=== PATIENT | male | born 1950 | race Two or more races ===

== ENCOUNTER 2024-09-02 18:58 | Inpatient (IN) | payer MEDICARE, OTHER ==
[~2024-09-02] VITALS: Ht 167.6 cm; Wt 72.0 kg
[~2024-09-02 18:58] MED LIST: IBU600T PO
[2024-09-02] MEDS: SODIUM CHLORIDE 0.9% 1,000 ML IV ONE ×2 (19:15→22:46)
[2024-09-02 19:34] LABS: Basophils # (auto) 0 10 ^3/uL (0-0.2); Basophils % (auto) 0.6 % (0.0-2.0); Eosinophils # (auto) 0.1 10 ^3/uL (0-0.8); Eosinophils % (auto) 2.3 % (0.0-7.0); Hemoglobin 14.3 g/dL (13.5-17.5); Lymphocytes # (auto) 1.5 10 ^3/uL (0.4-5.4); Lymphocytes % (auto) 34.2 % (10.0-50.0); Mean Corpuscular Hemoglobin 28.5 pg (28.0-32.0); Mean Corpuscular Hgb Conc. 33.4 g/dL (32.0-36.0); Mean Corpuscular Volume 85.5 fL (80.0-100.0); Monocytes # (auto) 0.4 10 ^3/uL (0-1.3); Monocytes % (auto) 8.2 % (0.0-12.0); Neutrophils # (auto) 2.3 10 ^3/uL (1.6-8.6); Neutrophils % (auto) 54.7 % (37.0-80.0); Nucleated Red Blood Cells % 0.1 %; Platelet Count (auto) 212 10^3/uL (140-450); Red Blood Cells 5.03 10^6/uL (4.5-5.90); Red Cell Distribution Width 14.5 % (11.8-14.3); White Blood Cell 4.3 10^3/uL (4.4-10.8)
[2024-09-02 19:43] LABS: Chloride 105 mmol/L (98-107); Potassium 4.3 mmol/L (3.5-5.1); Sodium 140 mmol/L (136-145)
[2024-09-02 19:44] LABS: Anion Gap 11 (5-15); Carbon Dioxide 24 mmol/L (20-31)
[2024-09-02 19:45] LABS: Calcium 9.9 mg/dL (8.7-10.4)
[2024-09-02 19:49] VITALS: PULSE 86; RESP 16; O2SAT 97
[2024-09-02 19:50] LABS: BUN/Creatinine Ratio 11.6 (10.0-20.0); Blood Urea Nitrogen 13 mg/dL (9-23)
[2024-09-02 19:54] LABS: Blood Alcohol < 3.0 mg/dL (<10); Glucose 186 mg/dL (74-106)
[2024-09-02 19:57] LABS: Lactic Acid w/Reflex 2.5 mmol/L (0.4-2.0)
--- NOTE | 2024-09-02 20:06 | ED.PDOC ---
HPI Comments 74 y/o M, with PMHx of DM presents to the ED for CC of low blood pressure and left arm pain. Per patient's son, patient had a syncopal episode at home at 1800 today (09/02/24) while getting up from a sitting position. Patient fell and struck his left shoulder and arm and arrives with the pain throughout. Patient's son reports, this prompted him to check patient's blood pressure resulting in a hypotensive reading. Patient complains, of current pain to his left arm following trauma. Patient denies head injury, loss of consciousness, nausea, headache, or vomiting. No other symptoms or modifying factors present at this time. Patient's blood pressure was 91/54 at arrival. Chief Complaint: Low Blood Pressure Time Seen by MD: 19:00 Primary Care Provider: UNKNOWN Reviewed Notes: Nurses Notes, Medications, Allergies Allergies: Coded Allergies: NO KNOWN ALLERGIES (Unverified , 03/22/24) Home Meds Active Scripts Ibuprofen Micronized (MOTRIN TABLET) 600 Mg Tb, 600 MG PO TID PRN for 5 Days, #15 TAB *Black box warning-NSAIDS can increase risk of NJ & hypertension, GI irritation, ulceration, bleed, perferation. Do not use post cardiac surgery. Use short duration/lowest effective dose. Prov:BIMAL SOTELO MD 03/22/24 Information Source: Patient, Relative (Child) Mode of Arrival: Ambulatory Severity: Moderate Timing: Minutes Duration: Since onset Prehospital treatment: None Onset: At Rest Cardiac Risk Factors: Diabetes PE Risk Factors: None History of: None Modifying Factors: Nothing Associated Signs and Symptoms: None Past Medical History PAST MEDICAL HISTORY: DM, HTN Surgical History: Denies all surgeries Family History Family History: Unknown Social History Smoker: Non-Smoker Alcohol: Denies ETOH Use Drugs: Denies Drug Use Lives In: Home Constitutional: denies: chills, diaphoresis, fatigue, fever, malaise, sweats, weakness, others EENTM: denies: blurred vision, double vision, ear bleeding, ear discharge, ear drainage, ear pain, ear ringing, eye pain, eye redness, hearing loss, mouth pain, mouth swelling, nasal discharge, nose bleeding, nose congestion, nose pain, photophobia, tearing, throat pain, throat swelling, voice changes, others Respiratory: denies: cough, hemoptysis, orthopnea, SOB at rest, shortness of breath, SOB with excertion, stridor, wheezing, others Cardiovascular: denies: chest pain, dizzy spells, diaphoresis, Dyspnea on exertion, edema, irregular heart beat, left arm pain, lightheadedness, palpitations, PND, syncope, others Gastrointestinal: denies: abdomen distended, abdominal pain, blood streaked bowels, constipated, diarrhea, dysphagia, difficulty swallowing, hematemesis, melena, nausea, poor appetite, poor fluid intake, rectal bleeding, rectal pain, vomiting, others Genitourinary: denies: burning, dysuria, flank pain, frequency, hematuria, incontinence, penile discharge, penile sore, pain, testicle pain, testicle swelling, urgency, others Neurological: reports: fainting; denies: dizziness, headache, left sided numbness, left sided weakness, numbness, paresthesia, pre-existing deficit, right sided numbness, right sided weakness, seizure, speech problems, tingling, tremors, weakness, others Musculoskeletal: reports: others (Left shoulder and left arm pain); denies: back pain, gout, joint pain, joint swelling, muscle pain, muscle stiffness, neck pain Integumetry: denies: bruises, change in color, change in hair/nails, dryness, laceration, lesions, lumps, rash, wounds, others Allergic/Immunocompromised: denies: Difficulty Healing, Frequent Infections, Hives, Itching, others Hematologic/Lymphatic: denies: anemia, blood clots, easy bleeding, easy bruising, swollen glands, others Endocrine: denies: excessive hunger, excessive sweating, excessive thirst, excessive urination, flushing, intolerance to cold, intolerance to heat, unexpla ined weight gain, unexplained weight loss, others Psychiatric: denies: anxiety, bipolar disorder, depression, hopeless, panic disorder, schizophrenia, sleepless, suicidal, others All Other Systems: Reviewed and Negative Physical Exam General Appearance: Moderate Distress (Due to left shoulder and left arm pain concerns), Normal HEENT: Head (Cranial exam was unremarkable. No signs of trauma. No skull depressions or deformities.), Normal ENT Inspection, Pharynx Normal, TMs Normal Neck: Full Range of Motion, Non-Tender, Normal, Normal Inspection Respiratory: Chest Non-Tender, Lungs Clear, No Accessory Muscle Use, No R espiratory Distress, Normal Breath Sounds Cardiovascular: No Edema, No JVD, No Murmur, No Gallop, Normal Peripheral Pulses, Regular Rate/Rhythm Breast Exam: Deferred Gastrointestinal: No Organomegaly, Non Tender, No Pulsatile Mass, Normal Bowel Sounds, Soft Genitalia: Deferred Pelvic: Deferred Rectal: Deferred Extremities: Other (Patient's left arm was diffusely tender to palpation throughout the shoulder girdle extending throughout the humeral region towards the elbow. Significant reduced range of motion. Distal neurovascularly intact.) Neurologic: Alert, No Sensory Deficits Cerebellar Function: NOT DONE Reflexes: NOT DONE Skin: Dry, Normal Color, Warm Lymphatic: No Adenopathy Was a procedure done? Was a procedure done?: No CP Differential Dx Differential Diagnosis: A-fib, A-Flutter, Angina, AV Block 1st Degree, Electrolyte Disorder, NJ, Other (Sepsis, electrolyte abnormality, vasovagal, shoulder fracture, humeral fracture, arm contusion) Differential Diagnosis: Other (hypotension) X-Ray, Labs, Meds, VS Vital Signs Date Time Temp Pulse Resp B/P (MAP) Pulse Ox O2 Delivery O2 Flow Rate FiO2 09/02/24 20:57 97 Room Air* 0 21 09/02/24 20:00 88 19 131/65 (87) 98 09/02/24 19:49 86 16 97 Room Air* 0 21 09/02/24 19:42 97.7 87 19 136/70 (92) 98 97.7 09/02/24 18:58 98.1 87 16 91/54 (66) 97 98.1 Lab Test 09/02/24 21:22 09/02/24 20:22 09/02/24 19:45 09/02/24 19:19 Range/Units Lactic Acid Level 2.8 *H 2.5 *H 0.4-2.0 mmol/L Troponin I High Sensitivity < 3 L < 3 L </=54 ng/L POC Glucose 206 H 70-106 mg/dl White Blood Count 4.3 L 4.4-10.8 10^3/uL Red Blood Count 5.03 4.5-5.90 10^6/uL Hemoglobin 14.3 13.5-17.5 g/dL Hematocrit 43.0 41.0-53.0 % Mean Corpuscular Volume 85.5 80.0-100.0 fL Mean Corpuscular Hemoglobin 28.5 28.0-32.0 pg Mean Corpuscular Hemoglobin Concent 33.4 32.0-36.0 g/dL Red Cell Distribution Width 14.5 H 11.8-14.3 % Platelet Count 212 140-450 10^3/uL Mean Platelet Volume 8.4 6.9-10.8 fL Neutrophils (%) (Auto) 54.7 37.0-80.0 % Lymphocytes (%) (Auto) 34.2 10.0-50.0 % Monocytes (%) (Auto) 8.2 0.0-12.0 % Eosinophils (%) (Auto) 2.3 0.0-7.0 % Basophils (%) (Auto) 0.6 0.0-2.0 % Neutrophils # (Auto) 2.3 1.6-8.6 10 ^3/uL Lymphocytes # (Auto) 1.5 0.4-5.4 10 ^3/uL Monocytes # (Auto) 0.4 0-1.3 10 ^3/uL Eosinophils # (Auto) 0.1 0-0.8 10 ^3/uL Basophils # (Auto) 0 0-0.2 10 ^3/uL Nucleated Red Blood Cells 0.1 % Sodium Level 140 136-145 mmol/L Potassium Level 4.3 3.5-5.1 mmol/L Chloride Level 105 98-107 mmol/L Carbon Dioxide Level 24 20-31 mmol/L Anion Gap 11 5-15 Blood Urea Nitrogen 13 9-23 mg/dL Creatinine 1.12 0.700-1.30 mg/dL Glomerular Filtration Rate Calc 68 >90 mL/min BUN/Creatinine Ratio 11.6 10.0-20.0 Serum Glucose 186 H 74-106 mg/dL Calcium Level 9.9 8.7-10.4 mg/dL B-Type Natriuretic Peptide 34.98 0-100 pg/mL Lipase 56 H 12-53 U/L Plasma/Serum Blood Alcohol < 3.0 <10 mg/dL Current Medications Medications (Trade) Dose Ordered Sig/Landon Route Start Time Stop Time Status Last Admin Sodium Chloride 1,000 ml @ 250 mls/hr Q4H ONCE IV 09/02/24 19:15 09/02/24 23:14 09/02/24 19:15 Sodium Chloride 1,000 ml @ 250 mls/hr Q4H ONCE IV 09/02/24 22:30 09/03/24 02:29 09/02/24 22:[address] [address] Ph: [phone] DIAGNOSTIC IMAGING Diagnostic Imaging Report : [id number] Signed PATIENT: YOCASTA TOLEDOCT: [id number] UNIT: [id number] : 1950 LOC: ER ROOM / BED: / AGE / SEX: 74 / M ADM STATUS: REG ER SERVICE 08 ORDERING PHYSICIAN: LOIS NEWTON PAC PROCEDURE(s): LSHD2 - L SHOULDER 2+ VIEW XRAY REASON: Trauma/fall ORDER NUMBER(s): [id number], ACCESSION NUMBER(s): [id number] CLINICAL INDICATION: Trauma/fall TECHNIQUE: 3 radiographic views of the left shoulder were obtained. Comparison: None FINDINGS/IMPRESSION: Fracture of the neck of the proximal left humerus. There is also fracture through the greater tuberosity. ATED BY: DEANNA DUARTE Jr., DO DICTATED DATE/TIME: 09/02/242025 SIGNED BY: DEANNA DUARTE Jr., SIGNED DATE/TIME: 09/02/242025 CC: [place] [id number] Ph: [phone] DIAGNOSTIC IMAGING Diagnostic Imaging Report : [id number] Signed PATIENT: YOCASTA TOLEDOCT: [id number] UNIT: [id number] : 1950 LOC: ER ROOM / BED: / AGE / SEX: 74 / M ADM STATUS: REG ER SERVICE 08 ORDERING PHYSICIAN: LOIS NEWTON PAC PROCEDURE(s): LHUM - L HUMERUS XRAY REASON: Trauma/fall ORDER NUMBER(s): [id number], ACCESSION NUMBER(s): [id number] CLINICAL INDICATION: Trauma/fall TECHNIQUE: 2 radiographic views of the left humerus were obtained. Comparison: None FINDINGS/IMPRESSION: Displaced fracture through the anatomic neck of the proximal humerus. Also fracture displaced through the greater tuberosity proximal humerus. ATED BY: DEANNA DUARTE Jr., DO DICTATED DATE/TIME: 09/02/242027 SIGNED BY: DEANNA DUARTE Jr., DO SIGNED DATE/TIME: 09/02/242027 CC: [place] [id number] Ph: [phone] DIAGNOSTIC IMAGING Diagnostic Imaging Report : [id number] Signed PATIENT: CORWIN TOLEDOOACCT: [id number] UNIT: [id number] : 1950 LOC: ER ROOM / BED: / AGE / SEX: 74 / M ADM STATUS: REG ER SERVICE 08 ORDERING PHYSICIAN: LOIS NEWTON PAC PROCEDURE(s): LELB3 - L ELBOW 3 VIEW XRAY REASON: Trauma/fall ORDER NUMBER(s): [id number], ACCESSION NUMBER(s): [id number] CLINICAL INDICATION: Trauma/fall TECHNIQUE: 3 radiographic views of the left elbow were obtained. Comparison: None FINDINGS/IMPRESSION: There is abnormal configuration of the radial head with no obvious fracture lines noted. Recommend correlation with point tenderness to exclude fracture. Limited evaluation for joint effusion given inadequate lateral positioning. Questionable mild posterior elbow soft tissue edema. ATED BY: JESSICA IBANEZ DO DICTATED DATE/TIME: 09/02/242030 SIGNED BY: JESSICA IBANEZ DO SIGNED DATE/TIME: 09/02/242030 CC: X-Ray, Labs, Meds, VS Comment All studies performed the ED were evaluated by me personally. Laboratories studies revealed an elevated lactic acid, a hyperglycemic state and elevated lipase with a unremarkable cardiac markers. EKG revealed a sinus rhythm with a rate of 97. Right axis deviation and minimal ST elevation on lateral leads. MO interval 135 and QT interval of 346. Imaging studies of the left arm revealed a left humeral neck fracture. Patient will be admitted for a cardiac evaluation to address his syncopal concerns, possible neurologic evaluation as well as possible orthopedic evaluation. Time of 1ST Reevaluation: 22:37 Reevaluation 1ST: Improved Consultation: PCP, Cardiology Patient Education/Counseling: Diagnosis, Treatment Family Education/Counseling: Diagnosis, Treatment, No Family Present Sepsis Sepsis Reasesment Focused Exam Orders: Laboratory Tests 09/02/24 19:19: Lactic Acid Level 2.5 09/02/24 21:22: Lactic Acid Level 2.8 Departure 1 Departure Time of Disposition: 22:37 Impression: Primary Impression: Humeral surgical neck fracture Additional Impressions: Elevated lactic acid level Hyperglycemia Elevated lipase Disposition: ADMITTED INPATIENT Condition: Fair Discharged With: Self Critical Care Note Critical Care Time?: No Stability Stability form required: No Heart Score Heart Score: Heart Score Response (Comments) Value History Slightly Suspicious 0 EKG Repolarization Disturb 1 Age >65 2 Risk Factors 1 or 2 risk factors 1 Troponin Normal limit 0 Total 4 I personally scribed for LAMAR,LOIS B PAC ([email or web address]) on 09/02/24 at 20:06. Electronically submitted by Sylvia Simons ([email or web address]). I personally scribed for LAMAR,LOIS B PAC ([email or web address]) on 09/02/24 at 20:14. Electronically submitted by Sylvia Simons ([email or web address]). I personally scribed for LAMAR,LOIS B PAC ([email or web address]) on 09/02/24 at 20:15. Electronically submitted by Sylvia Simons ([email or web address]). I personally scribed for LAMAR,LOIS B PAC ([email or web address]) on 09/02/24 at 21:04. Electronically submitted by Sylvia Simons ([email or web address]). I personally scribed for LAMAR,LOIS B PAC ([email or web address]) on 09/02/24 at 21:05. El ectronically submitted by Sylvia Simons ([email or web address]). I personally scribed for LAMAR,LOIS B PAC ([email or web address]) on 09/02/24 at 21:08. Elect ronically submitted by Sylvia Simons ([email or web address]). LAMAR,LOIS B PAC Sep 02, 2024 20:06
[2024-09-02 20:16] LABS: Lipase 56 U/L (12-53)
--- NOTE | 2024-09-02 20:29 | DVH ---
CLINICAL INDICATION: Trauma/fall TECHNIQUE: 3 radiographic views of the left shoulder were obtained. Comparison: None FINDINGS/IMPRESSION: Fracture of the neck of the proximal left humerus. There is also fracture through the greater tuberos ity.
--- NOTE | 2024-09-02 20:31 | DVH ---
CLINICAL INDICATION: Trauma/fall TECHNIQUE: 2 radiographic views of the left humerus were obtained. Comparison: None FINDINGS/IMPRESSION: Displaced fracture through the anatomic neck of the proximal humerus. Also fracture displaced through the greater tuberosity proximal humerus.
--- NOTE | 2024-09-02 20:34 | DVH ---
CLINICAL INDICATION: Trauma/fall TECHNIQUE: 3 radiographic views of the left elbow were obtained. Comparison: None FINDINGS/IMPRESSION: There is abnormal configuration of the radial head with no obvious fracture lines noted. Recommend c orrelation with point tenderness to exclude fracture. Limited evaluation for joint effusion given tammy dequate lateral positioning. Questionable mild posterior elbow soft tissue edema.
[2024-09-02 21:20] VITALS: O2SAT 97
[2024-09-02] MEDS: HYDROmorphone HCL 2 MG/ML VL/or syr IV ONE (22:45)
[2024-09-03] MEDS ORDERED: ACETAMINOPHEN 325 MG TAB PO PRN (02:15)
[2024-09-03] MEDS ORDERED: HYDROcodone-ACET 5/325MG TAB PO PRN (02:15)
[2024-09-03] MEDS ORDERED: ONDANSETRON HCL 4 MG/2 ML VIAL IV PRN (02:15)
[2024-09-03] MEDS ORDERED: NITROGLYCERIN 0.4 MG SL TAB SL PRN (02:15)
[2024-09-03] MEDS ORDERED: DOCUSATE SOD 100 MG CAP PO PRN (02:15)
[2024-09-03] MEDS ORDERED: MORPHINE SULFATE INJ 2 MG/ml SYRG IV PRN ×2 (02:15)
[2024-09-03] MEDS ORDERED: DEXTROSE (50%) 50ML SYRG IV PRN (02:15)
--- NOTE | 2024-09-03 02:17 | DVHHP2 ---
History of Present Illness Reason for Visit: Humeral surgical neck fracture History of Present Illness The patient is a 74-year-old male with past medical history of diabetes mellitus and hypertension who presented to [facility] ED with complaint of left arm pain. As reported by family, patient had a syncopal episode at home while getting up from a sitting position, fell hitting his left shoulder and arm with sustained injury. Patient started experiencing left shoulder pain,, hypotensive, getting worse that prompted this visit. Patient was seen and evaluated in the ED, laboratory data shows WBC 4.3, platelets 212, sodium 140, potassium 4.3, BUN 13, creatinine 1.12, glucose 186, calcium 9.9, lipase 56, troponin < 3, lactic acid 2.8, BNP 34.98, blood pressure 91/54 trending up to 131/65, heart rate 88, temperature 97.7 F, O2 saturation 97% on room air. Left shoulder x-ray revealing displaced fracture through the anatomic neck of the proximal humerus; also fracture displaced through the greater tuberosity proximal humerus. Patient was given Dilaudid 1 mg IV x1, please see medication orders section in the computer. On my assessment, family at bedside, patient denied chest pain, no headache, no dizziness, no diaphoresis, no shortness of breath, no nausea, no vomiting, no fever, no chills. Patient was admitted for further evaluation and medical management. Past Medical History DM, HTN Past Surgical History Denies all surgeries Family History Reviewed, noncontributory to the management of this case. Past Social History The patient lives at home, denies smoking, alcohol or illicit drugs abuse. Review of Systems Constitutional: Yes: Weakness; No: Fever, Chills, Sweats, Malaise, Other Eyes: No: Pain, Vision change, Conjunctivae inflammation, Eyelid inflammation, Other, Redness ENT: No: Ear pain, Ear discharge, Nose pain, Nose discharge, Nose congestion, Mouth pain, Mouth swelling, Throat pain, Throat swelling, Other Respiratory: No: Cough, Dry, Shortness of breath, SOB with excertion, Wheezing, Hemoptysis, Pleuritic Pain, Sputum, Wheezing, Other Cardiovascular: No: Chest Pain, Palpitations, Orthopnea, Paroxysmal Noc. Dyspnea, Edema, Lt Headedness, Other Gastrointestinal: No: Nausea, Vomiting, Abdominal Pain, Diarrhea, Constipation, Melena, Hematochezia, Other Genitourinary: No Dysuria, No Frequency, No Incontinence, No Hematuria, No Retention, No Other Musculoskeletal: shoulder pain (Left), arm pain (Left); No: other, neck pain, back pain, hand pain, leg pain, foot pain Skin: No: Rash, Lesions, Jaundice, Bruising, Other Neurological: No: Weakness, Numbness, Incoordination, Change in speech, Confusion, Seizures, Other Allergies: Coded Allergies: NO KNOWN ALLERGIES (Unverified , 03/22/24) Exam Vital Signs Vital Signs Date Time Temp Pulse Resp B/P (MAP) Pulse Ox O2 Delivery O2 Flow Rate FiO2 09/02/24 23:04 97 09/02/24 20:57 97 Room Air* 0 21 09/02/24 20:00 19 131/65 (87) 09/02/24 19:42 97.7 97.7 General Appearance: Alert, Oriented X3, Cooperative, No acute distress HEENT: Atraumatic, PERRLA, EOMI, Mucous membr. moist/pink Respiratory: Clear to auscultation, Normal air movement Cardiovascular: Regular rate, Normal S1, Normal S2, No murmurs Abdominal: Normal bowel sounds, Soft, No tenderness, No hepatospenomegaly, No masses Extremities: No clubbing, No cyanosis, No edema, Normal pulses, Other (Left shoulder tenderness) Skin: No rashes, No breakdown, No significant lesion Neuro: Normal speech, Normal tone, Sensation intact, Cranial nerves 3-12 NL, Reflexes 2+, Other (Generalized weakness) Psych/Mental Status: Mental status NL, Mood NL Labs/Xrays Labs Test 09/02/24 21:22 09/02/24 20:22 09/02/24 19:45 09/02/24 19:19 Range/Units Lactic Acid Level 2.8 *H 0.4-2.0 mmol/L Troponin I High Sensitivity < 3 L </=54 ng/L POC Glucose 206 H 70-106 mg/dl White Blood Count 4.3 L 4.4-10.8 10^3/uL Red Blood Count 5.03 4.5-5.90 10^6/uL Hemoglobin 14.3 13.5-17.5 g/dL Hematocrit 43.0 41.0-53.0 % Mean Corpuscular Volume 85.5 80.0-100.0 fL Mean Corpuscular Hemoglobin 28.5 28.0-32.0 pg Mean Corpuscular Hemoglobin Concent 33.4 32.0-36.0 g/dL Red Cell Distribution Width 14.5 H 11.8-14.3 % Platelet Count 212 140-450 10^3/uL Mean Platelet Volume 8.4 6.9-10.8 fL Neutrophils (%) (Auto) 54.7 37.0-80.0 % Lymphocytes (%) (Auto) 34.2 10.0-50.0 % Monocytes (%) (Auto) 8.2 0.0-12.0 % Eosinophils (%) (Auto) 2.3 0.0-7.0 % Basophils (%) (Auto) 0.6 0.0-2.0 % Neutrophils # (Auto) 2.3 1.6-8.6 10 ^3/uL Lymphocytes # (Auto) 1.5 0.4-5.4 10 ^3/uL Monocytes # (Auto) 0.4 0-1.3 10 ^3/uL Eosinophils # (Auto) 0.1 0-0.8 10 ^3/uL Basophils # (Auto) 0 0-0.2 10 ^3/uL Nucleated Red Blood Cells 0.1 % Sodium Level 140 136-145 mmol/L Potassium Level 4.3 3.5-5.1 mmol/L Chloride Level 105 98-107 mmol/L Carbon Dioxide Level 24 20-31 mmol/L Anion Gap 11 5-15 Blood Urea Nitrogen 13 9-23 mg/dL Creatinine 1.12 0.700-1.30 mg/dL Glomerular Filtration Rate Calc 68 >90 mL/min BUN/Creatinine Ratio 11.6 10.0-20.0 Serum Glucose 186 H 74-106 mg/dL Calcium Level 9.9 8.7-10.4 mg/dL B-Type Natriuretic Peptide 34.98 0-100 pg/mL Lipase 56 H 12-53 U/L Plasma/Serum Blood Alcohol < 3.0 <10 mg/dL PATIENT: DARWIN TOLEDOTERRIOACCT: [id number] UNIT: [id number] : 1950 LOC: ER ROOM / BED: / AGE / SEX: 74 / M ADM STATUS: REG ER SERVICE 08 ORDERING PHYSICIAN: LOIS NEWTON PAC PROCEDURE(s): LELB3 - L ELBOW 3 VIEW XRAY REASON: Trauma/fall ORDER NUMBER(s): [id number], ACCESSION NUMBER(s): [id number] CLINICAL INDICATION: Trauma/fall TECHNIQUE: 3 radiographic views of the left elbow were obtained. Comparison: None FINDINGS/IMPRESSION: There is abnormal configuration of the radial head with no obvious fracture lines noted. Recommend correlation with point tenderness to exclude fracture. Limited evaluation for joint effusion given inadequate lateral positioning. Questionable mild posterior elbow soft tissue edema. ORDERING PHYSICIAN: LOIS NEWTON PAC PROCEDURE(s): LHUM - L HUMERUS XRAY REASON: Trauma/fall ORDER NUMBER(s): [id number], ACCESSION NUMBER(s): [id number] CLINICAL INDICATION: Trauma/fall TECHNIQUE: 2 radiographic views of the left humerus were obtained. Comparison: None FINDINGS/IMPRESSION: Displaced fracture through the anatomic neck of the proximal humerus. Also fracture displaced through the greater tuberosity proximal humerus. ORDERING PHYSICIAN: LOIS NEWTON PAC PROCEDURE(s): LSHD2 - L SHOULDER 2+ VIEW XRAY REASON: Trauma/fall ORDER NUMBER(s): [id number], ACCESSION NUMBER(s): [id number] CLINICAL INDICATION: Trauma/fall TECHNIQUE: 3 radiographic views of the left shoulder were obtained. Comparison: None FINDINGS/IMPRESSION: Fracture of the neck of the proximal left humerus. There is also fracture through the greater tuberosity. Assessment/Plan Assessment/Plan Humeral surgical neck fracture Elevated lipase Elevated lactic acid level Diabetes mellitus with hyperglycemia Plan 1. Admit to telemetry unit 2. Breathing treatment 3. Pain control management 4. IV antibiotic management 5. Management of fluids and electrolytes 6. Consultation for orthopedic 7. Diagnostic test left shoulder x-ray 8. DVT prophylaxis-on Lovenox 9. Repeat labs CBC, CMP in a.m. 10. Home medication reviewed and reconciled 11. Continue with current medical management 12. Treatment plan discussed with patient and RN. Patient verbalized understanding. Plan discussed with: Patient, Other (RN) My Orders Orders - DAVID SANTOYO DNP Procedure Category Date Status Time Complete Blood Count LAB 09/03/24 Verified 04:00 Comprehensive LAB 09/03/24 Verified Metabolic Panel 04:00 Consistent DIET 09/03/24 Verified Carb(Ccho)Diabetes Breakfast Hydralazine Injection PHA 09/03/24 Verified (Apresoline Inject 02:15 Glucose Blood PHA 09/03/24 Verified (Accu-Chek Comfort 07:00 Bedtime Insulin Scale PHA 09/03/24 Verified 22:00 Moderate Insulin Ss PHA 09/03/24 Verified 07:00 Dextrose 50% Syringe PHA 09/03/24 Verified 02:15 Admit ADMIT 09/03/24 Verified 02:11 Allergies [facility] 09/03/24 Verified 02:11 Code Status CODE 09/03/24 Verified 02:11 Sodium Chloride Lock PHA 09/03/24 Verified (Saline Lock Ns) 06:00 Oxygen Per Hour RT 09/03/24 Verified 02:11 Hydrocodone-Acet PHA 09/03/24 Verified 5/325mg Tab ([place] 02:15 Ondansetron Hcl PHA 09/03/24 Verified (Zofran) 02:15 Docusate Sodium PHA 09/03/24 Verified Capsule (Colace 02:15 Enoxaparin Sodium PHA 09/03/24 Verified (Lovenox) 10:00 Fall Risk Precautions [facility] 09/03/[address] 02:11 Complete Blood Count LAB 09/04/24 Verified 04:00 Comprehensive LAB 09/04/24 Verified Metabolic Panel 04:00 Cardiac DIET 09/03/24 Verified Diet-2gna,Lofat,Lochol Breakfast Condition: Serious [facility] 09/03/24 Verified 02:11 Acetaminophen Tablet [facility] 09/03/24 Verified (Tylenol Tablet) 02:15 Maintain Bed Rest [facility] 09/03/24 Verified 02:11 Morphine Sulfate PHA 09/03/24 Verified Injection 02:15 Sequential [facility] 09/03/24 Verified Compression Device Nitroglycerin [facility] 09/03/24 Verified Sublingual (Ntrostat 02:15 Morphine Sulfate PHA 09/03/24 Verified Injection 02:15 Notify Md Of Changes [facility] 09/03/24 Verified From Base 02:11 [employer] For [facility] 09/03/24 Verified 24 Hours 02:11 Emergency Dysrhythmia [facility] 09/03/24 Verified Protocol 02:11 Rhythm Strips Once [facility] 09/03/24 Verified Every Shift 02:11 Oxygen By Nasal RT 09/03/24 Verified Cannula 02:11 Problem List: (1) Humeral surgical neck fracture (2) Elevated lipase (3) Elevated lactic acid level (4) Diabetes mellitus with hyperglycemia Date of Service: Sep 03, 2024 Billing Provider: DAVID SANTOYO DNP Common Visit Codes: [id number] INP/OBS CARE (HIGH) DAVID SANTOYO DNP Sep 03, 2024 02:17
[2024-09-03 03:26] LABS: Urine Bacteria None Seen /hpf (None Seen)
[2024-09-03 03:30] LABS: Urine Blood Negative /uL (Negative); Urine Clarity Clear (Clear); Urine Color Light-Yellow (Yellow); Urine Protein, UAD Negative (Negative); Urine Specific Gravity 1.014 (1.001-1.035); Urine Squamous Epithelial Cell FEW /hpf (<5); Urine Urobilinogen Normal (Negative); Urine WBC < 1 /HPF (0-3)
[2024-09-03 03:43] LABS: Amphetamine Screen, Urine Neg (NEGATIVE); Barbiturate Scree,Urine Neg (NEGATIVE); Benzodiazephine Screen, Urine Neg (NEGATIVE)
[2024-09-03 03:44] LABS: Cannabinoid Screen, Urine Neg (NEGATIVE); Cocaine Screen, Urine Neg (NEGATIVE); Opiate Scree,Urine Neg (NEGATIVE); Phencyclidine Screen, Urine Neg (NEGATIVE)
[2024-09-03 04:59] VITALS: BP 151/78; PULSE 88; RESP 16; TEMP 99.2; O2SAT 96
[2024-09-03 05:00] VITALS: BP 151/78; PULSE 88; RESP 16; TEMP 99.2; O2SAT 96
[2024-09-03 06:19] LABS: Basophils # (auto) 0 10 ^3/uL (0-0.2); Basophils % (auto) 0.2 % (0.0-2.0); Eosinophils # (auto) 0 10 ^3/uL (0-0.8); Eosinophils % (auto) 0.5 % (0.0-7.0); Hematocrit 36.9 % (41.0-53.0); Hemoglobin 12.4 g/dL (13.5-17.5); Lymphocytes # (auto) 1.5 10 ^3/uL (0.4-5.4); Lymphocytes % (auto) 24.9 % (10.0-50.0); Mean Corpuscular Hemoglobin 28.4 pg (28.0-32.0); Mean Corpuscular Hgb Conc. 33.6 g/dL (32.0-36.0); Mean Corpuscular Volume 84.5 fL (80.0-100.0); Monocytes # (auto) 0.5 10 ^3/uL (0-1.3); Monocytes % (auto) 8.8 % (0.0-12.0); Neutrophils % (auto) 65.6 % (37.0-80.0); Platelet Count (auto) 178 10^3/uL (140-450); Red Blood Cells 4.36 10^6/uL (4.5-5.90); Red Cell Distribution Width 14.4 % (11.8-14.3)
[2024-09-03] MEDS: hydrALAZINE HCL 20 MG/ML VL IV PRN (06:24)
[2024-09-03] MEDS: SODIUM CHLOR 0.9% PF (SALINE LOCK) 10ML VIAL/SYR IV SCH (06:24)
[2024-09-03 06:36] LABS: Alanine Aminotransferase 21 U/L (7-40); Albumin 3.8 g/dL (3.2-4.8); Alkaline Phosphatase 107 U/L (46-116); Anion Gap 10 (5-15); Aspartate Aminotransferase 13 U/L (<34); BUN/Creatinine Ratio 15.1 (10.0-20.0); Blood Urea Nitrogen 13 mg/dL (9-23); Calcium 9.1 mg/dL (8.7-10.4); Carbon Dioxide 24 mmol/L (20-31); Chloride 106 mmol/L (98-107); Potassium 3.9 mmol/L (3.5-5.1); Sodium 140 mmol/L (136-145); Total Protein 6.3 g/dL (5.7-8.2)
[2024-09-03 06:37] LABS: Bilirubin, Total 0.6 mg/dL (0.2-1.0); Glucose 193 mg/dL (74-106)
[2024-09-03] MEDS: ACCU-CHEK COMFORT CURVE STRIP VI SCH (06:49)
[2024-09-03] MEDS: InsuLIN REG 1unit/0.01ml Soln (100units/ml) SC SCH ×2 (06:57→21:25)
[2024-09-03] MEDS: cefTRIAXone 1GM/50ML D5W 50 ML IV SCH (09:07)
[2024-09-03] MEDS: ENOXAPARIN SOD 40 MG/0.4 ML SYRINGE SC SCH (10:41)
--- NOTE | 2024-09-03 16:39 | DVHPN2 ---
Subjective Fell and sustained left humerus fx Changes from previous H/P or p: Changes Eyes: No Pain, No Vision change, No Conjunctivae inflammation, No Eyelid inflammation, No Other, No Redness ENT: No Ear pain, No Ear discharge, No Nose pain, No Nose discharge, No Nose congestion, No Mouth pain, No Mouth swelling, No Throat pain, No Throat swelling, No Other Cardiovascular: No Chest Pain, No Palpitations, No Orthopnea, No Paroxysmal Noc. Dyspnea, No Edema, No Lt Headedness, No Other Respiratory: No Cough, No Dry, No Shortness of breath, No SOB with excertion, No Wheezing, No Hemoptysis, No Pleuritic Pain, No Sputum, No Other Gastrointestinal: No Nausea, No Vomiting, No Abdominal Pain, No Diarrhea, No Constipation, No Melena, No Hematochezia, No Other Genitourinary: No Dysuria, No Frequency, No Incontinence, No Hematuria, No Retention, No Other Musculoskeletal: No other, No neck pain; shoulder pain (Left), arm pain (Left); No back pain, No hand pain, No leg pain, No foot pain Skin: No Rash, No Lesions, No Jaundice, No Bruising, No Other Objective Vitals Vital Signs Date Time Temp Pulse Resp B/P (MAP) Pulse Ox O2 Delivery O2 Flow Rate FiO2 09/03/24 10:00 97 15 146/57 (86) 97 09/03/24 08:00 Room Air* 0 21 09/03/24 08:00 98.4 98.4 Intake/Output Intake and Output 09/03/24 07:00 Intake Total 2000 ml Balance 2000 ml Intake IV Total 2000 ml General Appearance: Alert, Oriented X3, Cooperative, No acute distress Lungs: Clear to auscultation, Normal air movement Cardiovascular: Regular rate, Normal S1, Normal S2, No murmurs Abdomen: Normal bowel sounds, Soft, No tenderness Extremities: No edema Medications Current Medications Medications Dose Ordered Sig/Landon Route Start Time Stop Time Status Last Admin Dose Admin Hydralazine HCl 10 mg Q6HP PRN IV 09/03/24 02:15 09/03/24 06:24 10 MG Diagnostic Test (Pha) 1 strip ACHS 09/03/24 07:00 09/03/24 11:30 1 STRIP Insulin Human Regular HS SC 09/03/24 22:00 Insulin Human Regular AC SC 09/03/24 07:00 09/03/24 12:17 6 UNITS Dextrose 50 ml UD PRN IV 09/03/24 02:15 Sodium Chloride 10 ml Q8HR IV 09/03/24 06:00 09/03/24 14:13 10 ML Acetaminophen/ Hydrocodone Bitart 1 tab Q4HP PRN PO 09/03/24 02:15 Ondansetron HCl 4 mg Q4HP PRN IV 09/03/24 02:15 Docusate Sodium 100 mg BIDPRN PRN PO 09/03/24 02:15 Enoxaparin Sodium 40 mg DAILY SC 09/03/24 10:00 09/03/24 10:41 40 MG Acetaminophen 650 mg Q6HP PRN PO 09/03/24 02:15 Morphine Sulfate 2 mg Q4HPRN PRN IV 09/03/24 02:15 Nitroglycerin 0.4 mg Q5MINP PRN SL 09/03/24 02:15 Morphine Sulfate 2 mg Q30M PRN IV 09/03/24 02:15 Ceftriaxone Sodium 50 ml @ 100 mls/hr DAILY@09 IV 09/03/24 09:00 09/03/24 09:07 100 MLS/HR Laboratory Results Laboratory Tests 09/03/24 05:57 Chemistry Test 09/02/24 19:19 09/03/24 05:57 Calcium Level 9.9 mg/dL (8.7-10.4) 9.1 mg/dL (8.7-10.4) Albumin 3.8 g/dL (3.2-4.8) Total Protein 6.3 g/dL (5.7-8.2) Lipid panel Test 09/02/24 19:19 Lipase 56 U/L (12-53) H Cardiac Markers Test 09/02/24 19:19 B-Type Natriuretic Peptide 34.98 pg/mL (0-100) LFT Test 09/03/24 05:57 Alanine Aminotransferase (ALT) 21 U/L (7-40) Alkaline Phosphatase 107 U/L (46-116) Aspartate Amino Transferase (AST) 13 U/L (<34) Total Bilirubin 0.6 mg/dL (0.2-1.0) Urinalysis Test 09/03/24 03:00 Urine Color Light-yellow (Yellow) Urine Clarity Clear (Clear) Urine pH 5.0 (5.0-9.0) Urine Specific [place] 1.014 (1.001-1.035) Urine Protein Negative (Negative) Urine Ketones Negative (Negative) Urine Blood Negative /uL (Negative) Urine Nitrite Negative (Negative) Urine Bilirubin Negative (Negative) Urine Urobilinogen Normal mg/dL (Negative) Urine Leukocyte Esterase Negative /uL (Negative) Urine RBC 1 /hpf (0 - 3) Urine Microscopic WBC < 1 /HPF (0-3) Urine Squamous Epithelial Cells Few /hpf (<5) Urine Bacteria None seen /hpf (None Seen) Urine Glucose 4+ mg/dL (Normal) H Assessment/Plan Assessment/Plan Left humerus Fx Syncope DM2 HTN Rule out sepsis PLAN: Rocephin Blood culture Ortho consult Cardiology consult Echo Full code Advanced directives discussed x 21 minutes Discussed with family at the bedside Plan discussed with: Patient My Orders Orders - BOB MELENDEZ MD Procedure Category Date Status Time * Orthopedic Consult CONS 09/03/24 Transmitted 12:55 Date of Service: Sep 03, 2024 Billing Provider: BOB MELENDEZ MD Common Visit Codes: [id number] INP/OBS CARE(HIGH) Secondary Visit Codes: [id number] CARE PLAN 30 MINUTES BOB MELENDEZ MD Sep 03, 2024 16:39
--- NOTE | 2024-09-03 17:41 | DVH ---
CHEST RADIOGRAPH Indication: sepsis Technique: Single frontal view of the chest was obtained Comparison: None FINDINGS: Lines and Tubes: None Lungs: No focal consolidation. Oval-shaped 6.6 x 5.7 cm density overlying the left lateral lower lung zone and chest wall which is most likely external to the patient. Pleura: No effusion. No pneumothorax. Cardiomediastinal contours: Unremarkable Bones: No acute osseous abnormality. IMPRESSION: No acute cardiopulmonary disease.
[2024-09-03 18:15] VITALS: PULSE 85; RESP 18; O2SAT 95
[2024-09-03 18:55] VITALS: BP 139/65; PULSE 85; RESP 18; TEMP 98.3; O2SAT 95
[2024-09-03 20:00] VITALS: PULSE 84; RESP 17; O2SAT 98
[2024-09-03 21:00] VITALS: BP 121/72; PULSE 96; RESP 17; TEMP 98.4; O2SAT 98
[2024-09-04] VITALS (9 sets, daily range): BP systolic 129–167; BP diastolic 52–83; PULSE 76–91; RESP 16–18; TEMP 97.8–98.5; O2SAT 94–98
[2024-09-04] MEDS ORDERED: TAMS0.4C39 PO (02:53)
[2024-09-04] MEDS ORDERED: METF-372 PO (02:54)
[2024-09-04] MEDS ORDERED: ENAL5TAB22 PO (02:57)
[2024-09-04] MEDS ORDERED: ATOR40TA52 PO (02:58)
[2024-09-04] MEDS ORDERED: PIOG1TAB36 PO (03:00)
[2024-09-04] MEDS ORDERED: ASPI-378 PO (03:03)
[2024-09-04 07:20] LABS: Basophils # (auto) 0 10 ^3/uL (0-0.2); Basophils % (auto) 0.5 % (0.0-2.0); Eosinophils # (auto) 0 10 ^3/uL (0-0.8); Eosinophils % (auto) 0.8 % (0.0-7.0); Hematocrit 37.1 % (41.0-53.0); Hemoglobin 12.8 g/dL (13.5-17.5); Lymphocytes # (auto) 1.7 10 ^3/uL (0.4-5.4); Lymphocytes % (auto) 27.6 % (10.0-50.0); Mean Corpuscular Hemoglobin 28.9 pg (28.0-32.0); Mean Corpuscular Hgb Conc. 34.5 g/dL (32.0-36.0); Mean Corpuscular Volume 83.7 fL (80.0-100.0); Monocytes # (auto) 0.5 10 ^3/uL (0-1.3); Monocytes % (auto) 8.9 % (0.0-12.0); Neutrophils # (auto) 3.8 10 ^3/uL (1.6-8.6); Neutrophils % (auto) 62.2 % (37.0-80.0); Platelet Count (auto) 174 10^3/uL (140-450); Red Blood Cells 4.43 10^6/uL (4.5-5.90); Red Cell Distribution Width 14.3 % (11.8-14.3); White Blood Cell 6.1 10^3/uL (4.4-10.8)
[2024-09-04 07:30] LABS: Alanine Aminotransferase 18 U/L (7-40); Alkaline Phosphatase 114 U/L (46-116); Anion Gap 11 (5-15); Aspartate Aminotransferase 13 U/L (<34); BUN/Creatinine Ratio 15.4 (10.0-20.0); Blood Urea Nitrogen 10 mg/dL (9-23); Calcium 8.9 mg/dL (8.7-10.4); Carbon Dioxide 24 mmol/L (20-31); Chloride 102 mmol/L (98-107); Potassium 3.7 mmol/L (3.5-5.1); Sodium 137 mmol/L (136-145); Total Protein 6.7 g/dL (5.7-8.2)
[2024-09-04 07:31] LABS: Bilirubin, Total 0.8 mg/dL (0.2-1.0)
[2024-09-04 07:35] LABS: Glucose 149 mg/dL (74-106)
--- NOTE | 2024-09-04 09:35 | DVHINCON2 ---
Date Seen: Sep 04, 2024 Referring Physician Carlito Reason for Consultation Syncope History of Present Illness 74-year-old male with PMH for diabetes, HTN, previous smoker quit 3 years prior presents to the hospital with left arm pain, syncopal episode. Patient states she was vision with family stood up to turn and ended up just passing out fall on the floor. Denies any palpitation shortness of breath or chest pain. Upon presentation to the ER patient noted to be borderline hypotensive, troponins negative x2. He is on blood pressure medication with enalapril 10 mg p.o. daily, states takes every day, never checks his blood pressure. Denies any fever, diaphoresis, chills, nausea, vomiting. EKG reviewed and shows sinus rhythm at 97 beats per minute, nonspecific T-wave abnormality. Past Medical History HTN Diabetes Left wrist fracture Lower extremities fracture Past Surgical History Denies previous cardiac surgeries Family History Denies pertinent family cardiac history. Social History Denies alcohol, tobacco, illicit drug use. Patient was a former smoker half a pack a day quit 3 years ago. Allergies: Coded Allergies: NO KNOWN ALLERGIES (Unverified , 03/22/24) Home Meds Active Scripts Ibuprofen Micronized (MOTRIN TABLET) 600 Mg Tb, 600 MG PO TID PRN for 5 Days, #15 TAB *Black box warning-NSAIDS can increase risk of [place] & hypertension, GI irritation, ulceration, bleed, perferation. Do not use post cardiac surgery. Use short duration/lowest effective dose. Prov:BIMAL SOTELO MD 03/22/24 Reported Medications Aspirin (ALMA ASPIRIN EC LOW DOSE) 81 Mg Tab, 81 MG PO DAILY, TAB 09/04/24 Pioglitazone Hydrochloride (PIOGLITAZONE HCL) 15 Mg Tab, 15 MG PO DAILY, TAB 09/04/24 Atorvastatin Calcium (ATORVASTATIN CALCIUM) 40 Mg Tab, 40 MG PO DAILY, TAB 09/04/24 Enalapril Maleate (Enalapril Maleate) 5 Mg Tab, 10 MG PO DAILY, TAB 09/04/24 Metformin Hydrochloride (Metformin Hcl) 1,000 Mg Tab, 1000 MG PO BID, TAB 09/04/24 Tamsulosin Hcl (Tamsulosin Hcl) 0.4 Mg Cap, 0.4 MG PO, CAP 09/04/24 Current Medications Current Medications Medications (Trade) Dose Ordered Sig/Landon Route PRN Reason Start Time Stop Time Status Last Admin Insulin Human Regular (InsuLIN R) HS SC 09/03/24 22:00 09/03/24 21:25 Enoxaparin Sodium (Lovenox) 40 mg DAILY SC 09/03/24 10:00 09/03/24 10:41 Review of Systems Constitutional: No: Fever, Chills, Sweats, Weakness, Malaise, Other Eyes: No: Pain, Vision change, Conjunctivae inflammation, Eyelid inflammation, Other, Redness ENT: No: Ear pain, Ear discharge, Nose pain, Nose discharge, Nose congestion, Mouth pain, Mouth swelling, Throat pain, Throat swelling, Other Respiratory: No: Cough, Dry, Shortness of breath, SOB with exertion, Wheezing, Hemoptysis, Pleuritic Pain, Sputum, Wheezing, Other Cardiovascular: ; No: Chest Pain Palpitations, Orthopnea, Paroxysmal Noc. Dyspnea, Edema, Lt Headedness, Other Gastrointestinal: No: Nausea, Vomiting, Abdominal Pain, Diarrhea, Constipation, Melena, Hematochezia, Other Genitourinary: No Dysuria, No Frequency, No Incontinence, No Hematuria, No Retention, No Other Musculoskeletal: neck pain; No: other, back pain, hand pain, leg pain, foot pain positive: shoulder pain, arm pain, Skin: No: Rash, Lesions, Jaundice, Bruising, Other Neurological: Other (Dizziness, headache.); No: Weakness, Numbness, Incoordination, Change in speech, Confusion, Seizures Vital Signs Vital Signs Date Time Temp Pulse Resp B/P (MAP) Pulse Ox O2 Delivery O2 Flow Rate FiO2 09/04/24 05:00 98.5 85 17 156/83 (107) 98 98.5 09/03/24 20:00 Room Air* 0 21 Physical Exam General appearance: Patient is well-developed, well-nourished, in no acute distress. HEENT: Exam shows: Normocephalic, atraumatic, PERRLA, EOMI Neck: Supple, no bruits Chest: Equal chest excursion bilaterally. Breath sounds normal-no rales or wheezes. Heart: Rhythm: Regular rate; no murmur or gallop Abdomen: Exam shows: Soft, nontender, nondistended Musculoskeletal: No clubbing, no cyanosis, no lower extremity edema , left arm splint. Dermatology: Skin warm, moist. Neurological: Exam shows: Alert and oriented x4, normal speech Available prior records, labs, EKG, rhythm strips reviewed and interpreted Labs/Diagnostic Data Labs Test 09/04/24 06:39 09/04/24 05:48 09/03/24 03:00 09/02/24 21:22 Range/Units White Blood Count 6.1 4.4-10.8 10^3/uL Red Blood Count 4.43 L 4.5-5.90 10^6/uL Hemoglobin 12.8 L 13.5-17.5 g/dL Hematocrit 37.1 L 41.0-53.0 % Mean Corpuscular Volume 83.7 80.0-100.0 fL Mean Corpuscular Hemoglobin 28.9 28.0-32.0 pg Mean Corpuscular Hemoglobin Concent 34.5 32.0-36.0 g/dL Red Cell Distribution Width 14.3 11.8-14.3 % Platelet Count 174 140-450 10^3/uL Mean Platelet Volume 8.5 6.9-10.8 fL Neutrophils (%) (Auto) 62.2 37.0-80.0 % Lymphocytes (%) (Auto) 27.6 10.0-50.0 % Monocytes (%) (Auto) 8.9 0.0-12.0 % Eosinophils (%) (Auto) 0.8 0.0-7.0 % Basophils (%) (Auto) 0.5 0.0-2.0 % Neutrophils # (Auto) 3.8 1.6-8.6 10 ^3/uL Lymphocytes # (Auto) 1.7 0.4-5.4 10 ^3/uL Monocytes # (Auto) 0.5 0-1.3 10 ^3/uL Eosinophils # (Auto) 0 0-0.8 10 ^3/uL Basophils # (Auto) 0 0-0.2 10 ^3/uL Nucleated Red Blood Cells 0.0 % Sodium Level 137 136-145 mmol/L Potassium Level 3.7 3.5-5.1 mmol/L Chloride Level 102 98-107 mmol/L Carbon Dioxide Level 24 20-31 mmol/L Anion Gap 11 5-15 Blood Urea Nitrogen 10 9-23 mg/dL Creatinine 0.65 L 0.700-1.30 mg/dL Glomerular Filtration Rate Calc 98 >90 mL/min BUN/Creatinine Ratio 15.4 10.0-20.0 Serum Glucose 149 H 74-106 mg/dL Calcium Level 8.9 8.7-10.4 mg/dL Total Bilirubin 0.8 0.2-1.0 mg/dL Aspartate Amino Transferase (AST) 13 <34 U/L Alanine Aminotransferase (ALT) 18 7-40 U/L Alkaline Phosphatase 114 46-116 U/L Total Protein 6.7 5.7-8.2 g/dL Albumin 4.0 3.2-4.8 g/dL POC Glucose 171 H 70-106 mg/dl Urine Color Light-yellow Yellow Urine Clarity Clear Clear Urine pH 5.0 5.0-9.0 Urine Specific [place] 1.014 1.001-1.035 Urine Protein Negative Negative Urine Ketones Negative Negative Urine Blood Negative Negative /uL Urine Nitrite Negative Negative Urine Bilirubin Negative Negative Urine Urobilinogen Normal Negative mg/dL Urine Leukocyte Esterase Negative Negative /uL Urine RBC 1 0 - 3 /hpf Urine Microscopic WBC < 1 0-3 /HPF Urine Squamous Epithelial Cells Few <5 /hpf Urine Bacteria None seen None Seen /hpf Urine Glucose 4+ H Normal mg/dL Urine Opiates Screen Neg NEGATIVE Urine Fentanyl Screen Neg NEGATIVE Urine Barbiturates Screen Neg NEGATIVE Urine Phencyclidine Screen Neg NEGATIVE Urine Amphetamines Screen Neg NEGATIVE Urine Benzodiazepines Screen Neg NEGATIVE Urine Cocaine Screen Neg NEGATIVE Urine Cannabinoids Screen Neg NEGATIVE Lactic Acid Level 2.8 *H 0.4-2.0 mmol/L Test 09/02/24 20:22 09/02/24 19:19 Range/Units Troponin I High Sensitivity < 3 L </=54 ng/L B-Type Natriuretic Peptide 34.98 0-100 pg/mL Lipase 56 H 12-53 U/L Plasma/Serum Blood Alcohol < 3.0 <10 mg/dL Assessment * Syncope - continue telemetry monitoring. Follow up echo. Likely vasovagal. Monitor orthostatic vital signs. Recommend outpatient event monitoring. * HX HTN with episode of hypotension - continue trending. Blood pressure trending on the higher side, plan to reinitiate on BP med lower dose and titrate as tolerated. * Diabetes - management per primary team. * Left humeral fracture - ortho on board. * Suspected sepsis - elevated lactate. WBCs normal. Blood cultures pending. On antibiotics, management per primary team. Case Discussed with Dr Levy. Continue telemetry monitoring for arrhythmias. Recommend outpatient follow-up for event monitoring. Follow up echo. Critical care, time spent: 40 minutes This medical document was created using an electronic medical record system with voice recognition software and computerized dictation system. Although this document has been carefully reviewed, there might still be some phonetic and typographical errors. Occasional wrong-word or ``sound-alike substitutions may have occurred due to the inherent limitations of voice recognition software. These areas are purely typographical due to imperfections of the software pr ograms and do not reflect any compromise in the patient's medical care. Please read the chart carefully and recognize, using context, where these substitutions have occurred. Thank you for allowing me to participate in the management of this patient. The treatment plan was discussed with and agreed upon by patient/family including requesting consultants and ordering of imaging/procedures. Plan discussed with: Patient NYHA Physical activity limitations: NA Date of Service: Sep 04, 2024 Billing Provider: MICHAEL HENRIQUEZ Cardiology Common Codes: [id number] CARE, [id number] CARE 30-74 MIN MICHAEL HENRIQUEZ Sep 04, 2024 09:35
[2024-09-04] MEDS: cefTRIAXone 1GM/50ML D5W 50 ML IV ONE (09:49)
--- NOTE | 2024-09-04 13:02 | DVHPN2 ---
Subjective No new complaints Changes from previous H/P or p: Changes Eyes: No Pain, No Vision change, No Conjunctivae inflammation, No Eyelid inflammation, No Other, No Redness ENT: No Ear pain, No Ear discharge, No Nose pain, No Nose discharge, No Nose congestion, No Mouth pain, No Mouth swelling, No Throat pain, No Throat swelling, No Other Cardiovascular: No Chest Pain, No Palpitations, No Orthopnea, No Paroxysmal Noc. Dyspnea, No Edema, No Lt Headedness, No Other Respiratory: No Cough, No Dry, No Shortness of breath, No SOB with excertion, No Wheezing, No Hemoptysis, No Pleuritic Pain, No Sputum, No Other Gastrointestinal: No Nausea, No Vomiting, No Abdominal Pain, No Diarrhea, No Constipation, No Melena, No Hematochezia, No Other Genitourinary: No Dysuria, No Frequency, No Incontinence, No Hematuria, No Retention, No Other Musculoskeletal: No other, No neck pain; shoulder pain (Left), arm pain (Left); No back pain, No hand pain, No leg pain, No foot pain Skin: No Rash, No Lesions, No Jaundice, No Bruising, No Other Objective Vitals Vital Signs Date Time Temp Pulse Resp B/P (MAP) Pulse Ox O2 Delivery O2 Flow Rate FiO2 09/04/24 12:05 98.5 82 17 148/81 (103) 98 98.5 09/03/24 20:00 Room Air* 0 21 Intake/Output Intake and Output 09/04/24 07:00 Intake Total 750 ml Output Total 900 ml Balance -150 ml Intake Oral 700 ml IV Total 50 ml Output Urine Total 900 ml General Appearance: Alert, Oriented X3, Cooperative, No acute distress Lungs: Clear to auscultation, Normal air movement Cardiovascular: Regular rate, Normal S1, Normal S2, No murmurs Abdomen: Normal bowel sounds, Soft, No tenderness Extremities: No edema Medications Current Medications Medications Dose Ordered Sig/Landon Route Start Time Stop Time Status Last Admin Dose Admin Hydralazine HCl 10 mg Q6HP PRN IV 09/03/24 02:15 09/03/24 06:24 10 MG Diagnostic Test (Pha) 1 strip ACHS 09/03/24 07:00 09/04/24 11:30 1 STRIP Insulin Human Regular HS SC 09/03/24 22:00 09/03/24 21:25 4 UNITS Insulin Human Regular AC SC 09/03/24 07:00 09/04/24 12:10 3 UNITS Dextrose 50 ml UD PRN IV 09/03/24 02:15 Sodium Chloride 10 ml Q8HR IV 09/03/24 06:00 09/04/24 06:08 10 ML Acetaminophen/ Hydrocodone Bitart 1 tab Q4HP PRN PO 09/03/24 02:15 Ondansetron HCl 4 mg Q4HP PRN IV 09/03/24 02:15 Docusate Sodium 100 mg BIDPRN PRN PO 09/03/24 02:15 Enoxaparin Sodium 40 mg DAILY SC 09/03/24 10:00 09/04/24 09:50 40 MG Acetaminophen 650 mg Q6HP PRN PO 09/03/24 02:15 Morphine Sulfate 2 mg Q4HPRN PRN IV 09/03/24 02:15 Nitroglycerin 0.4 mg Q5MINP PRN SL 09/03/24 02:15 Morphine Sulfate 2 mg Q30M PRN IV 09/03/24 02:15 Ceftriaxone Sodium 50 ml @ 100 mls/hr DAILY@09 IV 09/03/24 09:00 09/03/24 09:07 100 MLS/HR Laboratory Results Laboratory Tests 09/04/24 06:39 Chemistry Test 09/04/24 06:39 Albumin 4.0 g/dL (3.2-4.8) Calcium Level 8.9 mg/dL (8.7-10.4) Total Protein 6.7 g/dL (5.7-8.2) LFT Test 09/04/24 06:39 Alanine Aminotransferase (ALT) 18 U/L (7-40) Alkaline Phosphatase 114 U/L (46-116) Aspartate Amino Transferase (AST) 13 U/L (<34) Total Bilirubin 0.8 mg/dL (0.2-1.0) Urinalysis Test 09/03/24 03:00 Urine Color Light-yellow (Yellow) Urine Clarity Clear (Clear) Urine pH 5.0 (5.0-9.0) Urine Specific [place] 1.014 (1.001-1.035) Urine Protein Negative (Negative) Urine Ketones Negative (Negative) Urine Blood Negative /uL (Negative) Urine Nitrite Negative (Negative) Urine Bilirubin Negative (Negative) Urine Urobilinogen Normal mg/dL (Negative) Urine Leukocyte Esterase Negative /uL (Negative) Urine RBC 1 /hpf (0 - 3) Urine Microscopic WBC < 1 /HPF (0-3) Urine Squamous Epithelial Cells Few /hpf (<5) Urine Bacteria None seen /hpf (None Seen) Urine Glucose 4+ mg/dL (Normal) H Assessment/Plan Assessment/Plan Left humerus Fx Syncope DM2 HTN Rule out sepsis PLAN: Rocephin Blood culture Ortho consult Cardiology consult Echo Full code Advanced directives discussed x 21 minutes Discussed with family at the bedside 09/04/2024: Continue the current management Orthopedic consult is pending Echocardiogram is done, report is pending Cardiology is following Pain management No sepsis Sepsis was ruled out No UTI No pneumonia Discontinue IV antibiotics Lovenox Plan discussed with: Patient My Orders Orders - BOB MELENDEZ MD Procedure Category Date Status Time Chest Xray 1 View XY 09/03/24 Resulted 16:34 Blood Culture AARON 09/03/24 In Process 16:35 * Cardiology Consult CONS 09/03/24 Transmitted 17:20 Date of Service: Sep 04, 2024 Billing Provider: BOB MELENDEZ MD Common Visit Codes: [id number] INP/OBS CARE(HIGH) BOB MELENDEZ MD Sep 04, 2024 13:02
--- NOTE | 2024-09-04 15:38 | DVHSR ---
APPROVED REPORT EXAM: Two-dimensional and M-mode echocardiogram with Doppler and color Doppler. Blood Pressure: 156/83 mmHg INDICATION Syncope RISK FACTORS Height: 5'6", Weight: 153 DIMENSIONS LVDd3.6 (3.8-5.7cm)LA (2D)4.0 (1.9-4.0cm)Aortic Root3.2 (2.0-3.7cm) LVDs2.6 (2.5-4.0cm)LA (MM) (1.9-4.0cm)Aortic Cusp Exc1.4 (1.5-2.0cm) EF (%) 58.0 (55-70%)Rt. Atrium4.0 (1.9-4.0cm)Asc. Aorta cm IVSd1.1 (0.7-1.1cm)RV (D) (1.8-2.4cm) PWd1.1 (0.7-1.1cm) Mitral Valve MitralMitral Stenosis E wave0.84m/sMV Mean GR.mmHg A wave1.05m/sMV Peak GR.mmHg E/A ratio0.82D MVAcm2 DECEL [id number] 1/2 Timems Aortic Valve Aortic ValveAortic Stenosis V10.77m/Paz Mean GR.2mmHg V20.85m/Paz Peak GR.3mmHg LVOT Diameter1.9 (1.8-2.4cm)Doppler AVA2.57cm2 Other Information Quality : LimitedRhythm : Technically limited study due to body habitus, patient lying toward right side in left arm sling. Conclusion Technically good study. Off axis views. Left atrial enlargement. Mild aortic root enlargement. Mild aortic sclerosis. EF of 60% with normal RV function. Unremarkable Doppler. No pericardial effusion masses or vegetations noted.
[2024-09-05] VITALS (8 sets, daily range): BP systolic 114–152; BP diastolic 60–79; PULSE 77–103; RESP 16–18; TEMP 97.6–98.5; O2SAT 94–98
--- NOTE | 2024-09-05 06:54 | DVHINCON2 ---
Date of service: Sep 05, 2024 Reason for Consultation Left proximal humerus fracture History of Present Illness 74 yo M who fainted from a syncope episode and landed onto left side. Pain in left shoulder and arm. No numbness or tingling. No current cp/sob/abd pain. Past Medical History diabetes, HTN, previous smoker Family History: Patient reports no known family medical history. Allergies: Coded Allergies: NO KNOWN ALLERGIES (Unverified , 03/22/24) Home Meds Active Scripts Ibuprofen Micronized (MOTRIN TABLET) 600 Mg Tb, 600 MG PO TID PRN for 5 Days, #15 TAB *Black box warning-NSAIDS can increase risk of [place] & hypertension, GI irritation, ulceration, bleed, perferation. Do not use post cardiac surgery. Use short duration/lowest effective dose. Prov:BIMAL SOTELO MD 03/22/24 Reported Medications Aspirin (ALMA ASPIRIN EC LOW DOSE) 81 Mg Tab, 81 MG PO DAILY, TAB 09/04/24 Pioglitazone Hydrochloride (PIOGLITAZONE HCL) 15 Mg Tab, 15 MG PO DAILY, TAB 09/04/24 Atorvastatin Calcium (ATORVASTATIN CALCIUM) 40 Mg Tab, 40 MG PO DAILY, TAB 09/04/24 Enalapril Maleate (Enalapril Maleate) 5 Mg Tab, 10 MG PO DAILY, TAB 09/04/24 Metformin Hydrochloride (Metformin Hcl) 1,000 Mg Tab, 1000 MG PO BID, TAB 09/04/24 Tamsulosin Hcl (Tamsulosin Hcl) 0.4 Mg Cap, 0.4 MG PO, CAP 09/04/24 Review of Systems 10 point ROS neg except per HPI Vital Signs Vital Signs Date Time Temp Pulse Resp B/P (MAP) Pulse Ox O2 Delivery O2 Flow Rate FiO2 09/05/24 05:00 115/64 (81) 09/05/24 05:00 98.2 85 16 96 98.2 09/04/24 20:00 Room Air* 0 21 Physical Exam NAD LUE: sling in place +we/wf silt m/r/u RP 2_+ Labs/Diagnostic Data Labs Test 09/05/24 05:57 09/04/24 06:39 09/03/24 03:00 09/02/24 21:22 Range/Units POC Glucose 139 H 70-106 mg/dl White Blood Count 6.1 4.4-10.8 10^3/uL Red Blood Count 4.43 L 4.5-5.90 10^6/uL Hemoglobin 12.8 L 13.5-17.5 g/dL Hematocrit 37.1 L 41.0-53.0 % Mean Corpuscular Volume 83.7 80.0-100.0 fL Mean Corpuscular Hemoglobin 28.9 28.0-32.0 pg Mean Corpuscular Hemoglobin Concent 34.5 32.0-36.0 g/dL Red Cell Distribution Width 14.3 11.8-14.3 % Platelet Count 174 140-450 10^3/uL Mean Platelet Volume 8.5 6.9-10.8 fL Neutrophils (%) (Auto) 62.2 37.0-80.0 % Lymphocytes (%) (Auto) 27.6 10.0-50.0 % Monocytes (%) (Auto) 8.9 0.0-12.0 % Eosinophils (%) (Auto) 0.8 0.0-7.0 % Basophils (%) (Auto) 0.5 0.0-2.0 % Neutrophils # (Auto) 3.8 1.6-8.6 10 ^3/uL Lymphocytes # (Auto) 1.7 0.4-5.4 10 ^3/uL Monocytes # (Auto) 0.5 0-1.3 10 ^3/uL Eosinophils # (Auto) 0 0-0.8 10 ^3/uL Basophils # (Auto) 0 0-0.2 10 ^3/uL Nucleated Red Blood Cells 0.0 % Sodium Level 137 136-145 mmol/L Potassium Level 3.7 3.5-5.1 mmol/L Chloride Level 102 98-107 mmol/L Carbon Dioxide Level 24 20-31 mmol/L Anion Gap 11 5-15 Blood Urea Nitrogen 10 9-23 mg/dL Creatinine 0.65 L 0.700-1.30 mg/dL Glomerular Filtration Rate Calc 98 >90 mL/min BUN/Creatinine Ratio 15.4 10.0-20.0 Serum Glucose 149 H 74-106 mg/dL Calcium Level 8.9 8.7-10.4 mg/dL Total Bilirubin 0.8 0.2-1.0 mg/dL Aspartate Amino Transferase (AST) 13 <34 U/L Alanine Aminotransferase (ALT) 18 7-40 U/L Alkaline Phosphatase 114 46-116 U/L Total Protein 6.7 5.7-8.2 g/dL Albumin 4.0 3.2-4.8 g/dL Urine Color Light-yellow Yellow Urine Clarity Clear Clear Urine pH 5.0 5.0-9.0 Urine Specific [place] 1.014 1.001-1.035 Urine Protein Negative Negative Urine Ketones Negative Negative Urine Blood Negative Negative /uL Urine Nitrite Negative Negative Urine Bilirubin Negative Negative Urine Urobilinogen Normal Negative mg/dL Urine Leukocyte Esterase Negative Negative /uL Urine RBC 1 0 - 3 /hpf Urine Microscopic WBC < 1 0-3 /HPF Urine Squamous Epithelial Cells Few <5 /hpf Urine Bacteria None seen None Seen /hpf Urine Glucose 4+ H Normal mg/dL Urine Opiates Screen Neg NEGATIVE Urine Fentanyl Screen Neg NEGATIVE Urine Barbiturates Screen Neg NEGATIVE Urine Phencyclidine Screen Neg NEGATIVE Urine Amphetamines Screen Neg NEGATIVE Urine Benzodiazepines Screen Neg NEGATIVE Urine Cocaine Screen Neg NEGATIVE Urine Cannabinoids Screen Neg NEGATIVE Lactic Acid Level 2.8 *H 0.4-2.0 mmol/L Test 09/02/24 20:22 09/02/24 19:19 Range/Units Troponin I High Sensitivity < 3 L </=54 ng/L B-Type Natriuretic Peptide 34.98 0-100 pg/mL Lipase 56 H 12-53 U/L Plasma/Serum Blood Alcohol < 3.0 <10 mg/dL Microbiology Date/Time Source Procedure Growth Status 09/03/24 16:50 Blood Blood Culture - Preliminary NO GROWTH AFTER 24 HOURS OF INCUBATION. Resulted Plan/Recommendation 74 yo M with left proximal humerus fracture/ syncope 1. NWB LUE 2. pain control 3. incentive spirometer 4. dvt ppx 5. fu in [facility] ortho clinic in 1-2 weeks Plan discussed with: Patient ROBERT MOORE MD Sep 05, 2024 06:54
--- NOTE | 2024-09-05 12:51 | DVHPN2 ---
Consult Progress Note Date Seen: Sep 05, 2024 Subjective Review of Systems: CVS:Normal, RESPIRATORY:Normal, NEURO:Normal Other Systems: Denies any dizziness, visual disturbance, or cardiac symptoms Objective vital signs Vital Sign Date Time Temp Pulse Resp B/P (MAP) Pulse Ox O2 Delivery O2 Flow Rate FiO2 09/05/24 08:59 97.8 88 18 152/79 (103) 97 97.8 09/05/24 07:45 Room Air* 0 21 Total Intake and Output 09/04/24 09/04/24 09/05/24 15:00 23:00 07:00 Intake Total 240 ml 585 ml 240 ml Output Total 350 ml 450 ml Balance 240 ml 235 ml -210 ml medications Current Medications Medications Dose Ordered Sig/Landon Route Start Time Stop Time Status Last Admin Dose Admin Hydralazine HCl 10 mg Q6HP PRN IV 09/03/24 02:15 09/04/24 16:53 Diagnostic Test (Pha) 1 strip ACHS 09/03/24 07:00 09/05/24 11:36 Insulin Human Regular HS SC 09/03/24 22:00 09/04/24 21:55 Insulin Human Regular AC SC 09/03/24 07:00 09/05/24 12:09 Dextrose 50 ml UD PRN IV 09/03/24 02:15 Sodium Chloride 10 ml Q8HR IV 09/03/24 06:00 09/05/24 06:03 Acetaminophen/ Hydrocodone Bitart 1 tab Q4HP PRN PO 09/03/24 02:15 Ondansetron HCl 4 mg Q4HP PRN IV 09/03/24 02:15 Docusate Sodium 100 mg BIDPRN PRN PO 09/03/24 02:15 Enoxaparin Sodium 40 mg DAILY SC 09/03/24 10:00 09/05/24 08:52 Acetaminophen 650 mg Q6HP PRN PO 09/03/24 02:15 Morphine Sulfate 2 mg Q4HPRN PRN IV 09/03/24 02:15 Nitroglycerin 0.4 mg Q5MINP PRN SL 09/03/24 02:15 Morphine Sulfate 2 mg Q30M PRN IV 09/03/24 02:15 Examination: LUNGS:Normal, CVS:Normal (NSR), NEURO:Normal laboratory and microbiology Laboratory Tests 09/04/24 06:39 Test 09/04/24 06:39 Range/Units Serum Glucose 149 H 74-106 mg/dL Problem List/Assessment/Plan Problem List/Assessment/Plan Assessment (Dr. Levy) * Syncope - LVEF 60% with LAE. Continue telemetry monitoring, NSR. Orthostatic vital signs, head CT, and bilateral carotid duplex pending. Recommend outpatient event monitoring to rule out cardiac arrhythmias. * Rule out acute CVA/TIA - STAT head CT. * HTN with transient episode of hypotension - Initiate BP control, enalapril QD. Hydralazine PRN. * Nqe-fupoxsw-uvkzuvlwg diabetes mellitus - management per primary team. * Left humeral fracture - ortho on board. Thank you for allowing me to participate in the management of this patient. The treatment plan was discussed with and agreed upon by patient/family including requesting consultants and ordering of imaging/procedures. This medical document was created using an electronic medical record system with voice recognition software and computerized dictation system. Although this document has been carefully reviewed, there might still be some phonetic and typographical errors. Occasional wrong-word or ``sound-alike substitutions may have occurred due to the inherent limitations of voice recognition software. These areas are purely typographical due to imperfections of the software programs and do not reflect any compromise in the patient's medical care. Please read the chart carefully and recognize, using context, where these substitutions have occurred. Plan discussed with: Patient, Other Date of Service: Sep 05, 2024 Billing Provider: RAQUEL PEREZ Cardiology Common Codes: [id number](High RAQUEL PEREZ Sep 05, 2024 12:51
--- NOTE | 2024-09-05 14:26 | DVH ---
Indication: Syncope Technique: Real-time ultrasound images of the neck vessels with eastman-scale, color and wave Doppler we re obtained. Comparison: None Findings: Hxpz-wo-mfvzmokq atherosclerotic plaque bilaterally The following peak systolic velocities were recorded in cm/sec: Right internal carotid: 100 Right common carotid: 76 Right external carotid: 131 Right internal/common carotid ratio: 1.3 Left internal carotid: 118 Left common carotid: 104 Left external carotid: 204 Left internal/common carotid ratio: 1.1 Right vertebral artery: Patent with normal antegrade direction of flow. Left vertebral artery: Patent with normal antegrade direction of flow. Impression: No hemodynamically significant stenosis by velocity criteria of the internal carotid arteries. Elevated left external carotid velocity consistent with hemodynamically significant stenosis of the l eft ECA. Lqax-pz-wrwmjlin atherosclerotic plaque.
--- NOTE | 2024-09-05 14:27 | DVH ---
EXAM: CT HEAD WITHOUT CONTRAST INDICATION: Syncopal event TECHNIQUE: CT of the head without intravenous contrast. Coronal and sagittal reformatted images are s ubmitted. Radiation Dose : 1. Head: CT Dose: CTDI volume is 54.99 mGy. Dose-length product is 973.73 mGy*cm The dose indicators for CT are the volume Computed Tomography (CT) Dose Index (CTDIvol) and the Dose Length Product (DLP), and are measured in units of mGy and mGy-cm, respectively. These indicators are not patient dose, but values generated from the CT scanner acquisition factors. The report includes radiation exposure data for exposures received during this examination. All CT scans at this medical facility are performed using dose modulation techniques as appropriate to a performed exam including the following: Automated exposure control was utilized; adjustment of the MA and/or KV according to patient size; and use of iterative reconstruction technique. COMPARISON: None FINDINGS: There is no evidence of acute intracranial hemorrhage, extra-axial collection, mass effect, midline s hift, herniation or hydrocephalus. There are periventricular and subcortical hypodensities, nonspecific, but likely reflecting sequelae of chronic microvascular ischemic changes. Encephalomalacia in the left frontal lobe. The ventricles, sulci and cisterns are age appropriate. The eastman-white differentiation is intact. The visualized paranasal sinuses and mastoid air cells are clear. No depressed calvarial fracture. The surrounding soft tissues are unremarkable. IMPRESSION: 1. No evidence of acute intracranial abnormality.
--- NOTE | 2024-09-05 14:28 | ECG ---
[facility] Test Date: 2024-09-02 Test Time: 23:04:16 Pat Name: CATHIE BUCHANANyazanartment: ED Room: [facility]T A Gender: M Network Director: : 1950 Requested By: LOIS NEWTON Order Number: [id number] Reading MD: Ozzy Levy Measurements Intervals [place] Rate: 97 P: 54 CO: 135 QRS: 98 QRSD: 93 T: 3 QT: 346 QTc: 440 Interpretive Statements Sinus rhythm Right axis deviation Minimal ST elevation, lateral leads Electronically Signed On 09-06-2024 17:30:36 PDT by Ozzy Levy Please click the below link to view image of tracing.
[2024-09-05] MEDS: ENALAPRIL MALEATE 10 MG TAB PO ONE (15:10)
--- NOTE | 2024-09-05 17:49 | DVHPN2 ---
Subjective Was seen by ortho, medical treatment Changes from previous H/P or p: Changes Eyes: No Pain, No Vision change, No Conjunctivae inflammation, No Eyelid inflammation, No Other, No Redness ENT: No Ear pain, No Ear discharge, No Nose pain, No Nose discharge, No Nose congestion, No Mouth pain, No Mouth swelling, No Throat pain, No Throat swelling, No Other Cardiovascular: No Chest Pain, No Palpitations, No Orthopnea, No Paroxysmal Noc. Dyspnea, No Edema, No Lt Headedness, No Other Respiratory: No Cough, No Dry, No Shortness of breath, No SOB with excertion, No Wheezing, No Hemoptysis, No Pleuritic Pain, No Sputum, No Other Gastrointestinal: No Nausea, No Vomiting, No Abdominal Pain, No Diarrhea, No Constipation, No Melena, No Hematochezia, No Other Genitourinary: No Dysuria, No Frequency, No Incontinence, No Hematuria, No Retention, No Other Musculoskeletal: No other, No neck pain; shoulder pain (Left), arm pain (Left); No back pain, No hand pain, No leg pain, No foot pain Skin: No Rash, No Lesions, No Jaundice, No Bruising, No Other Objective Vitals Vital Signs Date Time Temp Pulse Resp B/P (MAP) Pulse Ox O2 Delivery O2 Flow Rate FiO2 09/05/24 17:00 97.7 81 18 123/66 (85) 97 97.7 09/05/24 07:45 Room Air* 0 21 Intake/Output Intake and Output 09/05/24 07:00 Intake Total 1065 ml Output Total 800 ml Balance 265 ml Intake Oral 1065 ml Output Urine Total 800 ml # Bowel Movements 1 General Appearance: Alert, Oriented X3, Cooperative, No acute distress Lungs: Clear to auscultation, Normal air movement Cardiovascular: Regular rate, Normal S1, Normal S2, No murmurs Abdomen: Normal bowel sounds, Soft, No tenderness Extremities: No edema Medications Current Medications Medications Dose Ordered Sig/Landon Route Start Time Stop Time Status Last Admin Dose Admin Hydralazine HCl 10 mg Q6HP PRN IV 09/03/24 02:15 09/04/24 16:53 10 MG Diagnostic Test (Pha) 1 strip ACHS 09/03/24 07:00 09/05/24 17:18 1 STRIP Insulin Human Regular HS SC 09/03/24 22:00 09/04/24 21:55 6 UNITS Insulin Human Regular AC SC 09/03/24 07:00 09/05/24 17:19 6 UNITS Dextrose 50 ml UD PRN IV 09/03/24 02:15 Sodium Chloride 10 ml Q8HR IV 09/03/24 06:00 09/05/24 15:10 10 ML Acetaminophen/ Hydrocodone Bitart 1 tab Q4HP PRN PO 09/03/24 02:15 Ondansetron HCl 4 mg Q4HP PRN IV 09/03/24 02:15 Docusate Sodium 100 mg BIDPRN PRN PO 09/03/24 02:15 Enoxaparin Sodium 40 mg DAILY SC 09/03/24 10:00 09/05/24 08:52 40 MG Acetaminophen 650 mg Q6HP PRN PO 09/03/24 02:15 Morphine Sulfate 2 mg Q4HPRN PRN IV 09/03/24 02:15 Nitroglycerin 0.4 mg Q5MINP PRN SL 09/03/24 02:15 Morphine Sulfate 2 mg Q30M PRN IV 09/03/24 02:15 Enalapril Maleate 10 mg DAILY PO 09/06/24 10:00 Laboratory Results Laboratory Tests 09/04/24 06:39 Urinalysis Test 09/03/24 03:00 Urine Color Light-yellow (Yellow) Urine Clarity Clear (Clear) Urine pH 5.0 (5.0-9.0) Urine Specific [place] 1.014 (1.001-1.035) Urine Protein Negative (Negative) Urine Ketones Negative (Negative) Urine Blood Negative /uL (Negative) Urine Nitrite Negative (Negative) Urine Bilirubin Negative (Negative) Urine Urobilinogen Normal mg/dL (Negative) Urine Leukocyte Esterase Negative /uL (Negative) Urine RBC 1 /hpf (0 - 3) Urine Microscopic WBC < 1 /HPF (0-3) Urine Squamous Epithelial Cells Few /hpf (<5) Urine Bacteria None seen /hpf (None Seen) Urine Glucose 4+ mg/dL (Normal) H Microbiology Microbiology Date/Time Source Procedure Growth Status 09/03/24 16:50 Blood Blood Culture - Preliminary NO GROWTH AFTER 48 HOURS OF INCUBATION. Resulted Assessment/Plan Assessment/Plan Left humerus Fx Syncope DM2 HTN Rule out sepsis PLAN: Rocephin Blood culture Ortho consult Cardiology consult Echo Full code Advanced directives discussed x 21 minutes Discussed with family at the bedside 09/04/2024: Continue the current management Orthopedic consult is pending Echocardiogram is done, report is pending Cardiology is following Pain management No sepsis Sepsis was ruled out No UTI No pneumonia Discontinue IV antibiotics Lovenox 09/05/24: Start physical therapy Pain control Syncope: PT eval DC planning for tomorrow Plan discussed with: Patient My Orders Orders - BOB MELENDEZ MD Procedure Category Date Status Time Pt Request For Service PT 09/05/24 Logged 15:14 Date of Service: Sep 05, 2024 Billing Provider: BOB MELENDEZ MD Common Visit Codes: [id number] INP/OBS CARE(HIGH) BOB MELENDEZ MD Sep 05, 2024 17:49
[2024-09-06] VITALS (10 sets, daily range): BP systolic 118–137; BP diastolic 65–76; PULSE 79–94; RESP 18–19; TEMP 97.6–98.6; O2SAT 95–100
--- NOTE | 2024-09-06 09:04 | DVHPN2 ---
Consult Progress Note Date Seen: Sep 06, 2024 Subjective Review of Systems: CVS:Normal, RESPIRATORY:Normal, NEURO:Normal Objective vital signs Vital Sign Date Time Temp Pulse Resp B/P (MAP) Pulse Ox O2 Delivery O2 Flow Rate FiO2 09/06/24 05:00 98.3 85 18 136/74 (94) 98 98.3 09/05/24 20:00 Room Air* 0 21 Total Intake and Output 09/05/24 09/05/24 09/06/24 15:00 23:00 07:00 Intake Total 640 ml 480 ml Balance 640 ml 480 ml medications Current Medications Medications Dose Ordered Sig/Landon Route Start Time Stop Time Status Last Admin Dose Admin Hydralazine HCl 10 mg Q6HP PRN IV 09/03/24 02:15 09/04/24 16:53 10 MG Diagnostic Test (Pha) 1 strip ACHS 09/03/24 07:00 09/06/24 06:43 1 STRIP Insulin Human Regular HS SC 09/03/24 22:00 09/05/24 22:05 4 UNITS Insulin Human Regular AC SC 09/03/24 07:00 09/06/24 06:45 3 UNITS Dextrose 50 ml UD PRN IV 09/03/24 02:15 Sodium Chloride 10 ml Q8HR IV 09/03/24 06:00 09/06/24 06:43 10 ML Acetaminophen/ Hydrocodone Bitart 1 tab Q4HP PRN PO 09/03/24 02:15 Ondansetron HCl 4 mg Q4HP PRN IV 09/03/24 02:15 Docusate Sodium 100 mg BIDPRN PRN PO 09/03/24 02:15 Enoxaparin Sodium 40 mg DAILY SC 09/03/24 10:00 09/05/24 08:52 40 MG Acetaminophen 650 mg Q6HP PRN PO 09/03/24 02:15 Morphine Sulfate 2 mg Q4HPRN PRN IV 09/03/24 02:15 Nitroglycerin 0.4 mg Q5MINP PRN SL 09/03/24 02:15 Morphine Sulfate 2 mg Q30M PRN IV 09/03/24 02:15 Enalapril Maleate 10 mg DAILY PO 09/06/24 10:00 Examination: LUNGS:Normal, CVS:Abnormal (NSVT episodes x 2 on alarm security or surveillance monitor), NEURO:Normal laboratory and microbiology Laboratory Tests 09/04/24 06:39 Test 09/04/24 06:39 Range/Units Serum Glucose 149 H 74-106 mg/dL Problem List/Assessment/Plan Problem List/Assessment/Plan Assessment (Dr. Levy) * Syncope - LVEF 60% with LAE. Continue telemetry monitoring, NSR. Orthostatic vital signs, head CT, and bilateral carotid duplex all within normal limits. * Non-sustained ventricular tachycardia - x 2 episodes last night on alarm security or surveillance monitor. Schedule for cardiolite stress test to rule out coronary ischemia. Recommend outpatient event monitoring to rule out cardiac arrhythmias. * HTN with transient episode of hypotension - Initiate BP control, enalapril QD. Hydralazine PRN. * Abv-rkzisoi-sqzikklic diabetes mellitus - management per primary team. * Left humeral fracture - ortho on board. Thank you for allowing me to participate in the management of this patient. This medical document was created using an electronic medical record system with voice recognition software and computerized dictation system. Although this document has been carefully reviewed, there might still be some phonetic and typographical errors. Occasional wrong-word or ``sound-alike substitutions may have occurred due to the inherent limitations of voice recognition software. These areas are purely typographical due to imperfections of the software programs and do not reflect any compromise in the patient's medical care. Please read the chart carefully and recognize, using context, where these substitutions have occurred. Plan discussed with: Patient, Other Date of Service: Sep 06, 2024 Billing Provider: RAQUEL PEREZ Cardiology Common Codes: [id number](High RAQUEL PEREZ Sep 06, 2024 09:04
--- NOTE | 2024-09-06 10:04 | DVHPN2 ---
Subjective No new complaints He had some nonsustained V-Tach this morning Cardiology is doing a stress test Changes from previous H/P or p: Changes Eyes: No Pain, No Vision change, No Conjunctivae inflammation, No Eyelid inflammation, No Other, No Redness ENT: No Ear pain, No Ear discharge, No Nose pain, No Nose discharge, No Nose congestion, No Mouth pain, No Mouth swelling, No Throat pain, No Throat swelling, No Other Cardiovascular: No Chest Pain, No Palpitations, No Orthopnea, No Paroxysmal Noc. Dyspnea, No Edema, No Lt Headedness, No Other Respiratory: No Cough, No Dry, No Shortness of breath, No SOB with excertion, No Wheezing, No Hemoptysis, No Pleuritic Pain, No Sputum, No Other Gastrointestinal: No Nausea, No Vomiting, No Abdominal Pain, No Diarrhea, No Constipation, No Melena, No Hematochezia, No Other Genitourinary: No Dysuria, No Frequency, No Incontinence, No Hematuria, No Retention, No Other Musculoskeletal: No other, No neck pain; shoulder pain (Left), arm pain (Left); No back pain, No hand pain, No leg pain, No foot pain Skin: No Rash, No Lesions, No Jaundice, No Bruising, No Other Objective Vitals Vital Signs Date Time Temp Pulse Resp B/P (MAP) Pulse Ox O2 Delivery O2 Flow Rate FiO2 09/06/24 05:00 98.3 85 18 136/74 (94) 98 98.3 09/05/24 20:00 Room Air* 0 21 Intake/Output Intake and Output 09/06/24 07:00 Intake Total 1120 ml Balance 1120 ml Intake Oral 1120 ml # Voids 4 General Appearance: Alert, Oriented X3, Cooperative, No acute distress Lungs: Clear to auscultation, Normal air movement Cardiovascular: Regular rate, Normal S1, Normal S2, No murmurs Abdomen: Normal bowel sounds, Soft, No tenderness Extremities: No edema Medications Current Medications Medications Dose Ordered Sig/Landon Route Start Time Stop Time Status Last Admin Dose Admin Hydralazine HCl 10 mg Q6HP PRN IV 09/03/24 02:15 09/04/24 16:53 10 MG Diagnostic Test (Pha) 1 strip ACHS 09/03/24 07:00 09/06/24 06:43 1 STRIP Insulin Human Regular HS SC 09/03/24 22:00 09/05/24 22:05 4 UNITS Insulin Human Regular AC SC 09/03/24 07:00 09/06/24 06:45 3 UNITS Dextrose 50 ml UD PRN IV 09/03/24 02:15 Sodium Chloride 10 ml Q8HR IV 09/03/24 06:00 09/06/24 06:43 10 ML Acetaminophen/ Hydrocodone Bitart 1 tab Q4HP PRN PO 09/03/24 02:15 Ondansetron HCl 4 mg Q4HP PRN IV 09/03/24 02:15 Docusate Sodium 100 mg BIDPRN PRN PO 09/03/24 02:15 Enoxaparin Sodium 40 mg DAILY SC 09/03/24 10:00 09/05/24 08:52 40 MG Acetaminophen 650 mg Q6HP PRN PO 09/03/24 02:15 Morphine Sulfate 2 mg Q4HPRN PRN IV 09/03/24 02:15 Nitroglycerin 0.4 mg Q5MINP PRN SL 09/03/24 02:15 Morphine Sulfate 2 mg Q30M PRN IV 09/03/24 02:15 Enalapril Maleate 10 mg DAILY PO 09/06/24 10:00 Laboratory Results Laboratory Tests 09/04/24 06:39 Urinalysis Test 09/03/24 03:00 Urine Color Light-yellow (Yellow) Urine Clarity Clear (Clear) Urine pH 5.0 (5.0-9.0) Urine Specific [place] 1.014 (1.001-1.035) Urine Protein Negative (Negative) Urine Ketones Negative (Negative) Urine Blood Negative /uL (Negative) Urine Nitrite Negative (Negative) Urine Bilirubin Negative (Negative) Urine Urobilinogen Normal mg/dL (Negative) Urine Leukocyte Esterase Negative /uL (Negative) Urine RBC 1 /hpf (0 - 3) Urine Microscopic WBC < 1 /HPF (0-3) Urine Squamous Epithelial Cells Few /hpf (<5) Urine Bacteria None seen /hpf (None Seen) Urine Glucose 4+ mg/dL (Normal) H Microbiology Microbiology Date/Time Source Procedure Growth Status 09/03/24 16:50 Blood Blood Culture - Preliminary NO GROWTH AFTER 48 HOURS OF INCUBATION. Resulted Assessment/Plan Assessment/Plan Left humerus Fx Syncope DM2 HTN Rule out sepsis PLAN: Rocephin Blood culture Ortho consult Cardiology consult Echo Full code Advanced directives discussed x 21 minutes Discussed with family at the bedside 09/04/2024: Continue the current management Orthopedic consult is pending Echocardiogram is done, report is pending Cardiology is following Pain management No sepsis Sepsis was ruled out No UTI No pneumonia Discontinue IV antibiotics Lovenox 09/05/24: Start physical therapy Pain control Syncope: PT eval DC planning for tomorrow 09/06/24: Stress test today CT head and carotid US: Nl Syncope, Non-Sustained VT HTN DM Left hukerus fx Check K+ and Mg Plan discussed with: Patient My Orders Orders - BOB MELENDEZ MD Procedure Category Date Status Time Pt Request For Service PT 09/05/24 Logged 15:14 Date of Service: Sep 06, 2024 Billing Provider: BOB MELENDEZ MD Common Visit Codes: [id number] INP/OBS CARE(HIGH) BOB MELENDEZ MD Sep 06, 2024 10:04
[2024-09-06] MEDS ORDERED: REGADENOSON 0.4 MG/5 ML SYRG IV ONE (11:37)
[2024-09-06] MEDS: REGADENOSON 0.4 MG/5 ML SYRG IV ONE (11:45)
[2024-09-06] MEDS: ENALAPRIL MALEATE 10 MG TAB PO SCH (13:13)
[2024-09-06 13:21] LABS: Potassium 3.8 mmol/L (3.5-5.1)
[2024-09-06 13:28] LABS: Magnesium 1.8 mg/dL (1.6-2.6)
[2024-09-07] VITALS (8 sets, daily range): BP systolic 114–131; BP diastolic 60–78; PULSE 79–95; RESP 16–20; TEMP 97.7–98.2; O2SAT 97–100
[2024-09-08] VITALS (8 sets, daily range): BP systolic 126–146; BP diastolic 7–80; PULSE 76–87; RESP 17–19; TEMP 98.1–98.4; O2SAT 96–99
--- NOTE | 2024-09-08 11:46 | DVHPN2 ---
Subjective Patient is seen and examined at bedside. Complain of leg pain today. Reviewed: Care Plan, H&P, Labs, Medications, Previous Orders, Radiology Changes from previous H/P or p: No Changes Eyes: No Pain, No Vision change, No Conjunctivae inflammation, No Eyelid inflammation, No Other, No Redness ENT: No Ear pain, No Ear discharge, No Nose pain, No Nose discharge, No Nose congestion, No Mouth pain, No Mouth swelling, No Throat pain, No Throat swelling, No Other Cardiovascular: No Chest Pain, No Palpitations, No Orthopnea, No Paroxysmal Noc. Dyspnea, No Edema, No Lt Headedness, No Other Respiratory: No Cough, No Dry, No Shortness of breath, No SOB with excertion, No Wheezing, No Hemoptysis, No Pleuritic Pain, No Sputum, No Other Gastrointestinal: No Nausea, No Vomiting, No Abdominal Pain, No Diarrhea, No Constipation, No Melena, No Hematochezia, No Other Genitourinary: No Dysuria, No Frequency, No Incontinence, No Hematuria, No Retention, No Other Musculoskeletal: No other, No neck pain; shoulder pain (Left), arm pain (Left); No back pain, No hand pain, No leg pain, No foot pain Skin: No Rash, No Lesions, No Jaundice, No Bruising, No Other Objective Vitals Vital Signs Date Time Temp Pulse Resp B/P (MAP) Pulse Ox O2 Delivery O2 Flow Rate FiO2 09/08/24 10:02 146/69 09/08/24 09:30 98.3 76 17 97 98.3 09/08/24 08:00 Room Air* 0 21 Intake/Output Intake and Output 09/08/24 07:00 Intake Total 900 ml Output Total 500 ml Balance 400 ml Intake Oral 900 ml Output Urine Total 500 ml # Voids 1 General Appearance: Alert, Oriented X3, Cooperative, No acute distress HEENT: Atraumatic, PERRLA, EOMI, Mucous membr. moist/pink Neck: Supple Lungs: Clear to auscultation, Normal air movement Cardiovascular: Regular rate, Normal S1, Normal S2, No murmurs Abdomen: Normal bowel sounds, Soft, No tenderness Extremities: No edema Neuro: Cranial nerves 3-12 NL Psych/Mental Status: Mental status NL Medications Current Medications Medications Dose Ordered Sig/Landon Route Start Time Stop Time Status Last Admin Dose Admin Hydralazine HCl 10 mg Q6HP PRN IV 09/03/24 02:15 09/04/24 16:53 10 MG Diagnostic Test (Pha) 1 strip ACHS 09/03/24 07:00 09/08/24 06:25 1 STRIP Insulin Human Regular HS SC 09/03/24 22:00 09/07/24 21:59 8 UNITS Insulin Human Regular AC SC 09/03/24 07:00 09/08/24 06:26 6 UNITS Dextrose 50 ml UD PRN IV 09/03/24 02:15 Sodium Chloride 10 ml Q8HR IV 09/03/24 06:00 09/08/24 06:00 10 ML Acetaminophen/ Hydrocodone Bitart 1 tab Q4HP PRN PO 09/03/24 02:15 Ondansetron HCl 4 mg Q4HP PRN IV 09/03/24 02:15 Docusate Sodium 100 mg BIDPRN PRN PO 09/03/24 02:15 Enoxaparin Sodium 40 mg DAILY SC 09/03/24 10:00 09/08/24 10:01 40 MG Acetaminophen 650 mg Q6HP PRN PO 09/03/24 02:15 Morphine Sulfate 2 mg Q4HPRN PRN IV 09/03/24 02:15 Nitroglycerin 0.4 mg Q5MINP PRN SL 09/03/24 02:15 Morphine Sulfate 2 mg Q30M PRN IV 09/03/24 02:15 Enalapril Maleate 10 mg DAILY PO 09/06/24 10:00 09/08/24 10:02 10 MG Laboratory Results Laboratory Tests 09/04/24 06:39 09/06/24 12:59 Urinalysis Test 09/03/24 03:00 Urine Color Light-yellow (Yellow) Urine Clarity Clear (Clear) Urine pH 5.0 (5.0-9.0) Urine Specific [place] 1.014 (1.001-1.035) Urine Protein Negative (Negative) Urine Ketones Negative (Negative) Urine Blood Negative /uL (Negative) Urine Nitrite Negative (Negative) Urine Bilirubin Negative (Negative) Urine Urobilinogen Normal mg/dL (Negative) Urine Leukocyte Esterase Negative /uL (Negative) Urine RBC 1 /hpf (0 - 3) Urine Microscopic WBC < 1 /HPF (0-3) Urine Squamous Epithelial Cells Few /hpf (<5) Urine Bacteria None seen /hpf (None Seen) Urine Glucose 4+ mg/dL (Normal) H Microbiology Microbiology Date/Time Source Procedure Growth Status 09/03/24 16:50 Blood Blood Culture - Preliminary NO GROWTH AFTER 72 HOURS OF INCUBATION. Resulted Labs and/or images reviewed: Labs reviewed by me Assessment/Plan Assessment/Plan Left humerus Fx Syncope DM2 HTN Rule out sepsis PLAN: Continuing current management. Continuing with pain medication. Continuing with physical therapy. Continuing with sliding scale insulin. Orthopedic surgeon consult appreciated This medical document was created using an electronic medical record system with FRESS computerized dictation system. Although this document has been carefully reviewed, there may still be some phonetic and typographical errors. These areas are purely typographical due to imperfections of the software programs, and do not reflect any compromise in the patient's medical care. Plan discussed with: Patient Date of Service: Sep 08, 2024 Billing Provider: GERMAN LARSON MD Common Visit Codes: [id number] INP/OBS CARE(HIGH) GERMAN LARSON MD Sep 08, 2024 11:46
[2024-09-09 01:00] VITALS: BP 132/78; PULSE 80; RESP 18; TEMP 98.2; O2SAT 99
[2024-09-09 05:00] VITALS: BP_SYST 124; BP_SYST 127; BP_SYST 136; BP_DIAS 70; BP_DIAS 73; BP_DIAS 82; PULSE 77; PULSE 78; PULSE 81; RESP 18; TEMP 98.4; O2SAT 97; O2SAT 99
[2024-09-09 08:00] VITALS: PULSE 103; PULSE 87; RESP 19
[2024-09-09 09:00] VITALS: BP 101/66; PULSE 87; RESP 19; TEMP 98.1; O2SAT 99
--- NOTE | 2024-09-09 12:01 | DVHPN2 ---
Subjective Patient is seen and examined at bedside. Complain of leg pain today. Reviewed: Care Plan, H&P, Labs, Medications, Previous Orders, Radiology Eyes: No Pain, No Vision change, No Conjunctivae inflammation, No Eyelid inflammation, No Other, No Redness ENT: No Ear pain, No Ear discharge, No Nose pain, No Nose discharge, No Nose congestion, No Mouth pain, No Mouth swelling, No Throat pain, No Throat swelling, No Other Cardiovascular: No Chest Pain, No Palpitations, No Orthopnea, No Paroxysmal Noc. Dyspnea, No Edema, No Lt Headedness, No Other Respiratory: No Cough, No Dry, No Shortness of breath, No SOB with excertion, No Wheezing, No Hemoptysis, No Pleuritic Pain, No Sputum, No Other Gastrointestinal: No Nausea, No Vomiting, No Abdominal Pain, No Diarrhea, No Constipation, No Melena, No Hematochezia, No Other Genitourinary: No Dysuria, No Frequency, No Incontinence, No Hematuria, No Retention, No Other Musculoskeletal: No other, No neck pain; shoulder pain (Left), arm pain (Left); No back pain, No hand pain, No leg pain, No foot pain Skin: No Rash, No Lesions, No Jaundice, No Bruising, No Other Objective Vitals Vital Signs Date Time Temp Pulse Resp B/P (MAP) Pulse Ox O2 Delivery O2 Flow Rate FiO2 09/09/24 09:00 98.1 87 19 101/66 (78) 99 98.1 09/09/24 08:00 Room Air* 0 21 Intake/Output Intake and Output 09/09/24 07:00 Intake Total 1460 ml Output Total 400 ml Balance 1060 ml Intake Oral 1460 ml Output Urine Total 400 ml # Voids 2 General Appearance: Alert, Oriented X3, Cooperative, No acute distress HEENT: Atraumatic, PERRLA, EOMI, Mucous membr. moist/pink Neck: Supple Lungs: Clear to auscultation, Normal air movement Cardiovascular: Regular rate, Normal S1, Normal S2, No murmurs Abdomen: Normal bowel sounds, Soft, No tenderness Extremities: No edema Neuro: Cranial nerves 3-12 NL Psych/Mental Status: Mental status NL Medications Current Medications Medications Dose Ordered Sig/[place] Route Start Time Stop Time Status Last Admin Dose Admin Hydralazine HCl 10 mg Q6HP PRN IV 09/03/24 02:15 09/04/24 16:53 10 MG Diagnostic Test (Pha) 1 strip ACHS 09/03/24 07:00 09/09/24 06:09 1 STRIP Insulin Human Regular HS SC 09/03/24 22:00 09/08/24 21:58 4 UNITS Insulin Human Regular AC SC 09/03/24 07:00 09/09/24 06:08 2 UNITS Dextrose 50 ml UD PRN IV 09/03/24 02:15 Sodium Chloride 10 ml Q8HR IV 09/03/24 06:00 09/09/24 06:05 10 ML Acetaminophen/ Hydrocodone Bitart 1 tab Q4HP PRN PO 09/03/24 02:15 Ondansetron HCl 4 mg Q4HP PRN IV 09/03/24 02:15 Docusate Sodium 100 mg BIDPRN PRN PO 09/03/24 02:15 Enoxaparin Sodium 40 mg DAILY SC 09/03/24 10:00 09/09/24 08:39 40 MG Acetaminophen 650 mg Q6HP PRN PO 09/03/24 02:15 Morphine Sulfate 2 mg Q4HPRN PRN IV 09/03/24 02:15 Nitroglycerin 0.4 mg Q5MINP PRN SL 09/03/24 02:15 Morphine Sulfate 2 mg Q30M PRN IV 09/03/24 02:15 Enalapril Maleate 10 mg DAILY PO 09/06/24 10:00 09/09/24 08:38 10 MG Laboratory Results Laboratory Tests 09/04/24 06:39 09/06/24 12:59 Urinalysis Test 09/03/24 03:00 Urine Color Light-yellow (Yellow) Urine Clarity Clear (Clear) Urine pH 5.0 (5.0-9.0) Urine Specific [place] 1.014 (1.001-1.035) Urine Protein Negative (Negative) Urine Ketones Negative (Negative) Urine Blood Negative /uL (Negative) Urine Nitrite Negative (Negative) Urine Bilirubin Negative (Negative) Urine Urobilinogen Normal mg/dL (Negative) Urine Leukocyte Esterase Negative /uL (Negative) Urine RBC 1 /hpf (0 - 3) Urine Microscopic WBC < 1 /HPF (0-3) Urine Squamous Epithelial Cells Few /hpf (<5) Urine Bacteria None seen /hpf (None Seen) Urine Glucose 4+ mg/dL (Normal) H Microbiology Microbiology Date/Time Source Procedure Growth Status 09/03/24 16:50 Blood Blood Culture - Final NO GROWTH AFTER 5 DAYS OF INCUBATION. Complete Assessment/Plan Assessment/Plan Left humerus Fx Syncope DM2 HTN Rule out sepsis PLAN: Continuing current management. Continuing with pain medication. Continuing with physical therapy. Continuing with sliding scale insulin. Orthopedic surgeon consult appreciated This medical document was created using an electronic medical record system with [employer] direct computerized dictation system. Although this document has been carefully reviewed, there may still be some phonetic and typographical errors. These areas are purely typographical due to imperfections of the software programs, and do not reflect any compromise in the patient's medical care. GERMAN LARSON MD Sep 09, 2024 12:01
[2024-09-09] MEDS ORDERED: HYDR-4902 PO (12:20)
--- NOTE | 2024-09-09 13:36 | DVHSR ---
APPROVED REPORT Exam: Nuclear Stress Test Indication: NSVT r/o coronary ischemia BMI: 0 Medical History Medical History: HTN, DM, SYNCOPE Stress Test Details Stress Test: Pharmacologic stress testing performed using 0.4 mg of regadenoson per 5 mL given IV ov er 10 seconds. HR Resting HR: 83 bpmMax Heart Rate (APMHR): 144 bpm Max HR Achieved: 93 bpmTarget HR (85% APMHR): 122 bpm % of APMHR: 65 Recovery HR: 90 bpm BP Resting BP: 129/62 mmHg Recovery BP: 126/66 mmHg ECG Resting ECG: Sinus Rhythm Recovery ECG: Sinus Rhythm Clinical Reason for Termination: Completed protocol Stress ECG Conclusion Normal myocardial perfusion study. NM EXAM: Myocardial Perfusion REST/STRESS Perfusion Normal perfusion on both the stress and rest images. Nuclear Conclusion ECG Findings: negative for ischemia Clinical Findings: negative for ischemia Nuclear Findings: negative for ischemia Left Ventricular Function: normal Normal myocardial perfusion study.
--- NOTE | 2024-09-14 12:18 | DVHDS2 ---
Discharge Summary Date of Admission Sep 03, 2024 at 02:11 Date of Discharge: Sep 09, 2024 Admitting Diagnosis Left humerus Fx Syncope DM2 HTN Rule out sepsis Labs/Diagnostic Data: Laboratory Results Test 09/09/24 12:17 09/06/24 12:59 09/04/24 06:39 09/03/24 03:00 POC Glucose 199 mg/dl (70-106) Potassium Level 3.8 mmol/L (3.5-5.1) Magnesium Level 1.8 mg/dL (1.6-2.6) White Blood Count 6.1 10^3/uL (4.4-10.8) Red Blood Count 4.43 10^6/uL (4.5-5.90) Hemoglobin 12.8 g/dL (13.5-17.5) Hematocrit 37.1 % (41.0-53.0) Mean Corpuscular Volume 83.7 fL (80.0-100.0) Mean Corpuscular Hemoglobin 28.9 pg (28.0-32.0) Mean Corpuscular Hemoglobin Concent 34.5 g/dL (32.0-36.0) Red Cell Distribution Width 14.3 % (11.8-14.3) Platelet Count 174 10^3/uL (140-450) Mean Platelet Volume 8.5 fL (6.9-10.8) Neutrophils (%) (Auto) 62.2 % (37.0-80.0) Lymphocytes (%) (Auto) 27.6 % (10.0-50.0) Monocytes (%) (Auto) 8.9 % (0.0-12.0) Eosinophils (%) (Auto) 0.8 % (0.0-7.0) Basophils (%) (Auto) 0.5 % (0.0-2.0) Neutrophils # (Auto) 3.8 10 ^3/uL (1.6-8.6) Lymphocytes # (Auto) 1.7 10 ^3/uL (0.4-5.4) Monocytes # (Auto) 0.5 10 ^3/uL (0-1.3) Eosinophils # (Auto) 0 10 ^3/uL (0-0.8) Basophils # (Auto) 0 10 ^3/uL (0-0.2) Nucleated Red Blood Cells 0.0 % Sodium Level 137 mmol/L (136-145) Chloride Level 102 mmol/L (98-107) Carbon Dioxide Level 24 mmol/L (20-31) Anion Gap 11 (5-15) Blood Urea Nitrogen 10 mg/dL (9-23) Creatinine 0.65 mg/dL (0.700-1.30) Glomerular Filtration Rate Calc 98 mL/min (>90) BUN/Creatinine Ratio 15.4 (10.0-20.0) Serum Glucose 149 mg/dL (74-106) Calcium Level 8.9 mg/dL (8.7-10.4) Total Bilirubin 0.8 mg/dL (0.2-1.0) Aspartate Amino Transferase (AST) 13 U/L (<34) Alanine Aminotransferase (ALT) 18 U/L (7-40) Alkaline Phosphatase 114 U/L (46-116) Total Protein 6.7 g/dL (5.7-8.2) Albumin 4.0 g/dL (3.2-4.8) Urine Color Light-yellow (Yellow) Urine Clarity Clear (Clear) Urine pH 5.0 (5.0-9.0) Urine Specific [place] 1.014 (1.001-1.035) Urine Protein Negative (Negative) Urine Ketones Negative (Negative) Urine Blood Negative /uL (Negative) Urine Nitrite Negative (Negative) Urine Bilirubin Negative (Negative) Urine Urobilinogen Normal mg/dL (Negative) Urine Leukocyte Esterase Negative /uL (Negative) Urine RBC 1 /hpf (0 - 3) Urine Microscopic WBC < 1 /HPF (0-3) Urine Squamous Epithelial Cells Few /hpf (<5) Urine Bacteria None seen /hpf (None Seen) Urine Glucose 4+ mg/dL (Normal) Urine Opiates Screen Neg (NEGATIVE) Urine Fentanyl Screen Neg (NEGATIVE) Urine Barbiturates Screen Neg (NEGATIVE) Urine Phencyclidine Screen Neg (NEGATIVE) Urine Amphetamines Screen Neg (NEGATIVE) Urine Benzodiazepines Screen Neg (NEGATIVE) Urine Cocaine Screen Neg (NEGATIVE) Urine Cannabinoids Screen Neg (NEGATIVE) Test 09/02/24 21:22 09/02/24 20:22 09/02/24 19:19 Lactic Acid Level 2.8 mmol/L (0.4-2.0) Troponin I High Sensitivity < 3 ng/L (</=54) B-Type Natriuretic Peptide 34.98 pg/mL (0-100) Lipase 56 U/L (12-53) Plasma/Serum Blood Alcohol < 3.0 mg/dL (<10) Other Laboratory Tests 09/06/24 12:59 09/04/24 06:39 Brief Hx & Hospital Course: This is a 74 years old male with past medical history of diabetes, hypertension come to emergency department because of left arm pain. The patient apparently had a syncopal episode at home while getting up from a sitting position. He fell and hit his left shoulder and arm and sustained injury. Patient complained of unable to move the shoulder due to severe pain. Left shoulder x-ray revealing displaced fracture through the anatomic neck of the proximal humerus; also fracture displaced through the greater tuberosity proximal humerus. The patient was given IV pain medication with Dilaudid and oral pain medication [place]. Orthopedic surgeon see the patient. Recommend patient nonweightbearing on the left upper extremity. Wear sling all the time. Follow up in ortho clinic 1-2 weeks. Patient also had workup for his syncope. CT head showed negative for acute process. Carotid ultrasound showed left-sided moderate stenosis. The patient subsequently had a stress test done was negative for any ischemia. EKG did not show any change. Patient's pain controlled. I am going to discharge him home today. Advised him to follow up with primary care physician 1-2 weeks. Follow up with orthopedic surgeon Dr. Malin in his clinic 1-2 weeks. Nonweightbearing on the left upper arm and leave the hand in sling all the time until he see the orthopedic surgeon.. Activity as tolerated. Diet per home diet. Physical exam: HEENT: Normocephalic atraumatic pupils equal react to light and accommodation. Extraocular muscles intact, conjunctiva pink, oropharynx moist, no thrush, no exudate. Lymphatic: No lymphadenopathy Cardiovascular exam: S1, S2 was heard. No murmurs, rubs, gallops Lung: Clear on auscultation bilaterally, no wheeze, rale, rhonchi. GI: Abdominal soft, nondistended, nontenderness, positive bowel sounds. Extremity: No crepitus, cyanosis, edema. Pedal pulses present bilateral. Limited range of motion on left upper due to pain and fracture Skin: Normal turgor, no rash. Psych: Alert, oriented x3. Neurology: No focal deficits, cranial nerve II to XII grossly intact. This medical document was created using an electronic medical record system with [email or web address] direct computerized dictation system. Although this document has been carefully reviewed, there may still be some phonetic and typographical errors. These areas are purely typographical due to imperfections of the software programs, and do not reflect any compromise in the patient's medical care. Condition at Discharge: Stable Final Diagnosis/Problems List Displaced fracture through the anatomic neck of the proximal humerus; also fracture displaced through the greater tuberosity proximal humerus. Syncope DM2 HTN Rule out sepsis Discharge Disposition: Home Discharge Instruct/Medications Diet: Cardiac 2g Na,low cholest Activity: No Restrictions, As Tolerated Follow Up/Referral: pcp 1-2 weeks orthopedic clinic, Dr Alvarado in 1-2 weeks. Medications: Resume home meds norco 5/325 one tab q6hPRN Discharge Statement: "Patient was advised to return to the ER or call 911 if any headaches, dizziness, shortness of breath, chest pain, abdominal pain, bleeding, fevers, or worsening of medical condition. Patient was counseled about treatment plan, medications, possible side effects, patientverbalized understanding. All questions were answered to the best of my ability. This discharge took greater then 30 minutes in planning, reviewing documentation, counseling the patient, and discussing with other team members." ASSESSMENT ASSESSMENT Assessment syncope fracture Date of Service: Sep 09, 2024 Billing Provider: GERMAN LARSON MD Common Visit Codes: 08404-KDD/OBS DISCH DAY >30min GERMAN LARSON MD Sep 14, 2024 12:18
== END 2024-09-09 17:46 | disposition home or self-care (01) | DRG 563 ==
LOC: ER 18:58 → OVERFLOW 09-03 02:11 → TELE-WESTW 09-03 18:19
PROVIDERS: ADMIT Internal Medicine; ATTEND Internal Medicine
DX: S42.212A Unspecified displaced fracture of surgical neck of left humerus, initial encounter for closed fracture (principal); E87.20 Acidosis, unspecified; I47.20 Ventricular tachycardia, unspecified; I10 Essential (primary) hypertension; E11.65 Type 2 diabetes mellitus with hyperglycemia; R74.8 Abnormal levels of other serum enzymes; Z87.891 Personal history of nicotine dependence; Z79.84 Long term (current) use of oral hypoglycemic drugs; W18.39XA Other fall on same level, initial encounter; Y93.89 Activity, other specified; Y92.89 Other specified places as the place of occurrence of the external cause; Y99.8 Other external cause status
CPT/HCPCS: 36415; 70450; 71045; 73030; 73060; 73080; 78452; 80048; 80053; 80307; 80320; 81001; 82962; 83605; 83690; 83735; 83880; 84132; 84484; 85025; 87040; 93005; 93017; 93306; 93886; 96360; 96361; 97110; 97116; 97163; 97530; G0378; J1815